=== PATIENT | female | born 1990 | race Caucasian/White ===

== ENCOUNTER 2016-04-20 01:25 | Emergency (ER) | payer SELFPAY ==
[2016-04-20] MEDS ORDERED: ONDANSETRON 4 MG ODT TABLET SL ONE (01:42)
--- NOTE | 2016-04-20 01:49 | Emergency Department Record ---
History of Present Illness - General Chief complaint: Vomiting Stated complaint: NAUSEA/VOMITING Time Seen by Provider: 04/20/16 01:39 Source: Patient Mode of Arrival: Ambulatory Limitations: No limitations - History of Present Illness Initial comments: 25 yo female presents to ED with a CC of nausea and vomiting x 1 that began 3-4 hours ago. Patient denies abdominal pain symptoms, fevers, chills, or urinary symptoms. Patient denies health problems at her baseline. MD complaint: Nausea, Vomiting Onset/Timin -: Hour(s) Description of Vomiting: Food contents Associated Abdominal Pain: No Consistency: Constant Improves with: None Worsens with: None Associated Symptoms: Nausea/vomiting - Related Data Home Medications Medication Instructions Recorded Confirmed Last Taken Pnv95/Ferrous Fumarate/FA 1 each PO DAILY 04/20/16 04/20/16 Unknown [ Caplet] Previous Rx's Medication Instructions Recorded Promethazine HCl [Phenergan] 25 mg PO Q8H PRN #15 tablet 04/20/16 Allergies Allergy/AdvReac Type Severity Reaction Status Date / Time No Known Drug Allergies Allergy Unknown Unverified 07/29/13 10:08 [NO KNOWN DRUG ALLERGIES] Travel Screening - Travel/Exposure Within Last 30 Days Have you traveled within the last 30 days?: No Review of Systems Constitutional: Denies: Chills, Fever, Malaise Eyes: Denies: Eye discharge, Eye pain ENT: Denies: Congestion, Ear pain Respiratory: Denies: Cough, Dyspnea Cardiovascular: Denies: Chest pain, Dyspnea on exertion Endocrine: Denies: Fatigue, Heat or cold intolerance Gastrointestinal: Reports: Nausea, Vomiting. Denies: Abdominal pain Genitourinary: Denies: Dysuria, Frequency Musculoskeletal: Denies: Arthralgia, Back pain Skin: Denies: Bruising, Change in color Neurological: Denies: Abnormal gait, Confusion, Headache, Seizure Psychiatric: Denies: Anxiety Hematological/Lymphatic: Denies: Anemia, Blood Clots Past Medical History - SOCIAL HISTORY Smoking Status: Current every day smoker Alcohol Use: None Drug Use: Occassional Drug Use Detail:: Marijuana - RESPIRATORY Hx Respiratory Disorders: No - CARDIOVASCULAR Hx Cardio Disorders: No - NEURO Hx Neuro Disorders: No - GI Hx GI Disorders: No - Hx Genitourinary Disorders: Yes Hx Kidney Stones: Yes (02/15) - ENDOCRINE Hx Endocrine Disorders: No Hx Diabetes: No Hx Thyroid Disease: No - MUSCULOSKELETAL Hx Musculoskeletal Disorders: No - PSYCH Hx Psych Problems: Yes Hx Anxiety: Yes Hx Depression: Yes - HEMATOLOGY/ONCOLOGY Hx Hematology/Oncology Disorders: No Family Medical History Any Significant Family History?: Yes Hx Cancer: Mother *Cancer Comment: M-Breast Physical Exam - General General Appearance: Alert, Oriented x3, Cooperative, No acute distress Limitations: No limitations - Head Head exam: Atraumatic, Normocephalic, Normal inspection Head exam detail: negative: Abrasion, Contusion, Melo's sign, General tenderness, Hematoma, Laceration - Eye Eye exam: Normal appearance. negative: Conjunctival injection, Periorbital swelling, Periorbital tenderness, Scleral icterus - ENT Ear exam: negative: Auricular hematoma, Auricular trauma Nasal Exam: negative: Active bleeding, Discharge, Dried blood, Foreign body Mouth exam: negative: Drooling, Laceration, Muffled voice, Tongue elevation - Neck Neck exam: Normal inspection. negative: Meningismus, Tenderness - Respiratory Respiratory exam: Normal lung sounds bilaterally. negative: Respiratory distress, Rhonchi, Stridor, Wheezes - Cardiovascular Cardiovascular Exam: Regular rate, Normal rhythm, Normal heart sounds - GI/Abdominal GI/Abdominal exam: Soft. negative: Rebound, Rigid, Tenderness - Rectal Rectal exam: Deferred - exam: Deferred - Extremities Extremities exam: Normal inspection. negative: Calf tenderness, Pedal edema, Tenderness - Back Back exam: Reports: Normal inspection. Denies: CVA tenderness (R), CVA tenderness (L) - Neurological Neurological exam: Alert, Normal gait, Oriented X3 - Psychiatric Psychiatric exam: Normal affect, Normal mood. negative: Anxious - Skin Skin exam: Normal color. negative: Abrasion Type of lesion: negative: abrasion Course Vital Signs 04/20/16 01:29 Temperature 98.2 F Pulse Rate [ 62 Pulse Ox Probe] Respiratory 20 Rate Blood Pressure 118/84 [Left Arm] Pulse Ox 98 - Reevaluation(s) Reevaluation #1: 04/20/16 01:49 Patient seen and examined, abdominal examination is benign, and patient denies cramping or pain on examination. Will perform HCG to exclude , laboratory studies, and treat the patient's nausea symptoms with a plan for re- evaluation in 1 hour. 04/20/16 03:27 Reevaluation #2: 04/20/16 03:12 Labs reviewed and are grossly unremarkable for an acute process. Patient reassessed and reports that she is feeling much better. Patient appears stable for discharge at this time. Medical Decision Making - Lab Data Result diagrams: 04/20/16 02:25 04/20/16 02:25 Disposition Disposition: Discharge Clinical Impression: Nausea & vomiting Qualifiers: Vomiting type: unspecified Vomiting Intractability: non-intractable Qualified Code(s): R11.2 - Nausea with vomiting, unspecified Disposition: Home, Self-Care Condition: (2) Stable Instructions: Acute Nausea and Vomiting (ED) Additional Instructions: Return to ED if your symptoms worsen or if you have any concerns Phenergan as directed for your nausea symptoms Follow-up with your family doctor in 3-5 days as directed Prescriptions: Promethazine HCl [Phenergan] 25 mg PO Q8H PRN #15 tablet PRN Reason: Nausea/Vomiting Forms: Patient Portal Access Time of Disposition: 03:16
[2016-04-20 01:55] LABS: URINE APPEARANCE CLEAR; URINE BILIRUBIN NEGATIVE (NEGATIVE); URINE BLOOD LARGE (NEGATIVE); URINE COLOR YELLOW; URINE GLUCOSE (UA) NEGATIVE (NEGATIVE); URINE KETONE NEGATIVE (NEGATIVE); URINE LEUKOCYTE ESTERASE NEGATIVE (NEGATIVE); URINE NITRITE NEGATIVE (NEGATIVE); URINE PROTEIN TRACE (NEGATIVE); URINE UROBILINOGEN 0.2 E.U./dL (0.20 - 1.00)
[2016-04-20 01:59] LABS: URINE WBC 0 - 2 (0-2/hpf)
[2016-04-20 02:00] LABS: HCG,QUALITATIVE URINE NEGATIVE (NEGATIVE); URINE BACTERIA NONE SEEN
[2016-04-20] MEDS ORDERED: LORAZEPAM 2 MG/ML VIAL IV ONE (02:19)
[2016-04-20] MEDS ORDERED: PROMETHAZINE HCL 25 MG in 0.9 % SODIUM CHLORIDE 100ML 50 ML IVP ONE (02:19)
[2016-04-20] MEDS ORDERED: 0.9 % SODIUM CHLORIDE 1000ML 1,000 ML IV SCH (02:30)
[2016-04-20 02:33] LABS: BASO % 0.3 % (0-6); EOS % 7.9 % (0-6); GRAN % 71.9 % (47-80); HEMATOCRIT 37.5 % (35.0-47.0); HEMOGLOBIN 12.7 gm/dl (11.6-16.0); LYMPH % 14.5 % (16-45); MEAN CELL VOLUME 85.4 fl (81-97); MEAN CORPUSCULAR HEMOGLOBIN 28.9 pg (27-33); MEAN CORPUSCULAR HGB CONC 33.9 g/dl (32-36); MEAN PLATELET VOLUME 10.2 fl (7.4-10.4); MONO % 5.4 % (0-9); PLATELET COUNT 277 K/uL (130-400); RED BLOOD COUNT 4.39 M/uL (3.80-5.40); RED CELL DISTRIBUTION WIDTH 13.6 % (11.5-14.5); WHITE BLOOD COUNT W/O DIFF 9.6 K/uL (4.2-12.2)
[2016-04-20 02:43] LABS: ALB/GLOB RATIO 1.5 (1.1-1.8); ALBUMIN 4.3 gm/dL (3.5-5.0); ALKALINE PHOSPHATASE 67 U/L (38-126); ALT/SGPT 23 U/L (9-52); ANION GAP 13.8 (7-16); AST/SGOT 14 U/L (14-36); BILIRUBIN,TOTAL 0.28 mg/dL (0.2-1.3); BLOOD UREA NITROGEN 12 mg/dL (7-17); CARBON DIOXIDE 25.2 mmol/L (22-30); CREATININE 0.7 mg/dL (0.52-1.04); EST GLOMERULAR FILTRATION RATE > 60 ml/min; GLUCOSE,RANDOM 92 mg/dL (70-110); LIPASE 59 U/L (23-300); TOTAL PROTEIN 7.1 gm/dL (6.3-8.2)
== END 2016-04-20 03:31 | disposition home or self-care (01) ==
LOC: ER 01:25
DX: R11.2 Nausea with vomiting, unspecified (principal)
CPT/HCPCS: 99284 ×2; 96374; 96375; 83690; 85025; 80053; 81001; 81025; J2060; J2550; J7030

== ENCOUNTER 2017-05-10 23:03 | Emergency (ER) | payer SELFPAY ==
[2017-05-10] MEDS: IPRATROPIUM/ALBUTEROL (0.5MG/3MG) NEB INH ONE (23:42)
[2017-05-10] MEDS: METHYLPREDNISOLONE PF 125MG/VIAL IM ONE (23:42)
--- NOTE | 2017-05-11 00:14 | Emergency Department Record ---
History of Present Illness - General Chief Complaint: Cough Stated Complaint: COUGH Time Seen by Provider: 05/10/17 23:24 Source: Patient Mode of Arrival: Ambulatory Limitations: No limitations - History of Present Illness Initial Comments: pt feels sob.she has been wheezing. she just stopped smoking today MD Complaint: Shortness of breath Onset/Timin Severity: Mild Severity scale (1-10): 4 Consistency: Constant Improves With: Upright position Context: Recent URI Associated Symptoms: Cough, Fever - Related Data Previous Rx's Medication Instructions Recorded Promethazine HCl [Phenergan] 25 mg PO Q8H PRN #15 tablet 04/20/16 Allergies Allergy/AdvReac Type Severity Reaction Status Date / Time No Known Drug Allergies Allergy Unknown Unverified 07/29/13 10:08 [NO KNOWN DRUG ALLERGIES] Travel Screening - Travel/Exposure Within Last 30 Days Have you traveled within the last 30 days?: No - Travel/Exposure Within Last Year Have you traveled outside the [place] in the last year?: No - Additonal Travel Details Have you been exposed to anyone with a communicable illness?: No - Travel Symptoms Symptom Screening: None Review of Systems Reviewed: No additional complaints except as noted below Constitutional: Reports: As per HPI. Denies: Chills, Fever, Malaise, Night sweats, Weakness, Weight change Eyes: Reports: As per HPI. Denies: Eye discharge, Eye pain, Photophobia, Vision change ENT: Reports: As per HPI. Denies: Congestion, Dental pain, Ear pain, Epistaxis , Hearing loss, Throat pain Respiratory: Reports: As per HPI. Denies: Cough, Dyspnea, Hemoptysis, Stridor, Wheezes Cardiovascular: Reports: As per HPI. Denies: Arrhythmia, Chest pain, Dyspnea on exertion, Edema, Murmurs, Orthopnea, Palpitations, Paroxysmal nocturnal dyspnea, Rheumatic Fever, Syncope Endocrine: Reports: As per HPI. Denies: Fatigue, Heat or cold intolerance, Polydipsia, Polyuria Gastrointestinal: Reports: As per HPI. Denies: Abdominal pain, Constipation, Diarrhea, Hematemesis, Hematochezia, Melena, Nausea, Vomiting Genitourinary: Reports: As per HPI. Denies: Abnormal menses, Discharge, Dyspareunia, Dysuria, Frequency, Hematuria, Incontinence, Retention, Urgency Musculoskeletal: Reports: As per HPI. Denies: Arthralgia, Back pain, Gout, Joint swelling, Myalgia, Neck pain Skin: Reports: As per HPI. Denies: Bruising, Change in color, Change in hair/ nails, Lesions, Pruritus, Rash Neurological: Reports: As per HPI. Denies: Abnormal gait, Confusion, Headache, Numbness, Paresthesias, Seizure, Tingling, Tremors, Vertigo, Weakness Psychiatric: Reports: As per HPI. Denies: Anxiety, Auditory hallucinations, Depression, Homicidal thoughts, Suicidal thoughts, Visual hallucinations Hematological/Lymphatic: Reports: As per HPI. Denies: Anemia, Blood Clots, Easy bleeding, Easy bruising, Swollen glands Past Medical History - SOCIAL HISTORY Smoking Status: Current every day smoker Alcohol Use: None Drug Use: None - RESPIRATORY Hx Respiratory Disorders: No - CARDIOVASCULAR Hx Cardio Disorders: No - NEURO Hx Neuro Disorders: No - GI Hx GI Disorders: No - Hx Genitourinary Disorders: Yes Hx Kidney Stones: Yes (02/15) - ENDOCRINE Hx Endocrine Disorders: No Hx Diabetes: No Hx Thyroid Disease: No - MUSCULOSKELETAL Hx Musculoskeletal Disorders: No - PSYCH Hx Psych Problems: Yes Hx Anxiety: Yes Hx Depression: Yes - HEMATOLOGY/ONCOLOGY Hx Hematology/Oncology Disorders: No Family Medical History Any Significant Family History?: No Hx Cancer: Mother *Cancer Comment: M-Breast Physical Exam - General General Appearance: Alert, Oriented x3, Cooperative, Mild distress - Head Head exam: Normal inspection - Eye Eye exam: Normal appearance, PERRL, EOMI Pupils: Normal accommodation - ENT ENT exam: Normal exam, Mucous membranes moist, Normal external ear exam, Normal orophraynx Ear exam: Normal external inspection. negative: External canal tenderness Nasal Exam: Normal inspection. negative: Discharge, Sinus tenderness Mouth exam: Normal external inspection, Tongue normal Teeth exam: Normal inspection. negative: Dental caries Throat exam: Normal inspection. negative: Tonsillar erythema, Tonsillar exudate - Neck Neck exam: Normal inspection, Full ROM. negative: Tenderness - Respiratory Respiratory exam: Wheezes. negative: Respiratory distress - Cardiovascular Cardiovascular Exam: Regular rate, Normal rhythm, Normal heart sounds - GI/Abdominal GI/Abdominal exam: Soft, Normal bowel sounds. negative: Tenderness - Rectal Rectal exam: Deferred - exam: Deferred - Extremities Extremities exam: Normal inspection, Full ROM, Normal capillary refill. negative: Tenderness - Back Back exam: Reports: Normal inspection, Full ROM. Denies: Muscle spasm, Rash noted, Tenderness - Neurological Neurological exam: Alert, Normal gait, Oriented X3, Reflexes normal - Psychiatric Psychiatric exam: Normal affect, Normal mood - Skin Skin exam: Dry, Intact, Normal color, Warm Course Vital Signs 05/10/17 23:07 Temperature 98.7 F Pulse Rate [ 80 Pulse Ox Probe] Respiratory 24 Rate Blood Pressure 137/98 [Left Arm] Pulse Ox 97 - Reevaluation(s) Reevaluation #1: 05/11/17 00:12 pt feels better Medical Decision Making - Lab Data Lab Results 05/10/17 Range/Units 23:34 Urine HCG, Qual Negative (NEGATIVE) Disposition Disposition: Discharge Clinical Impression: Wheezing Disposition: Home, Self-Care Condition: (1) Good Instructions: Reactive Airways Disease (ED) Additional Instructions: follow up with family doctor. return sooner if worse. no smoking. ventolin 2 puffs every 6 hrs as needed Quality - Quality Measures Quality Measures: N/A - Blood Pressure Screening Does Patient Have Any of the Following: No Blood Pressure Classification: Hypertensive Reading Systolic Measurement: 137 Diastolic Measurement: 98 Screening for High Blood Pressure: < Pre-Hypertensive BP, F/U Documented > [ G8950] Pre-Hypertensive Follow-up Interventions: Follow-up with rescreen every year.
[2017-05-11] MEDS: ALBUTEROL HFA 8 GM INHALER INH ONE (00:19)
== END 2017-05-11 00:27 | disposition home or self-care (01) ==
LOC: ER 23:03
DX: R06.2 Wheezing (principal); R05 Cough; R06.02 Shortness of breath; F17.210 Nicotine dependence, cigarettes, uncomplicated
CPT/HCPCS: 81025; 96372; 99283; J2930

== ENCOUNTER 2017-05-12 22:38 | Emergency (ER) | payer SELFPAY ==
[2017-05-12] MEDS ORDERED: 0.9 % SODIUM CHLORIDE 1,000 ML BAG IV ONE (22:45)
[2017-05-12] MEDS ORDERED: PROMETHAZINE HCL 12.5 MG in 0.9 % SODIUM CHLORIDE 100ML 100 ML IVPB ONE (22:45)
[2017-05-12] MEDS ORDERED: PANTOPRAZOLE SODIUM IV 40 MG VIAL IVP ONE (22:45)
[2017-05-12] MEDS ORDERED: MORPHINE SULFATE 5 MG/ML PFS IVP ONE (22:48)
--- NOTE | 2017-05-12 22:49 | Emergency Department Record ---
History of Present Illness - General Chief Complaint: Abdominal Pain Stated Complaint: ABDOMINAL PAIN Time Seen by Provider: 05/12/17 22:40 Source: Patient, Family Mode of Arrival: Ambulatory Limitations: No limitations - History of Present Illness Initial Comments: 26 yo female presents with about two hours of upper abdominal pain. She states the pain is in the epigastric area and radiates to the LUQ. No lower abdominal pain. She has had similar pain over the last 5 years occasionally. She had similar pain in 2012 that lead to the removal of her gallbladder. The pain has continued to periodically return. She does not have a doctor or GI doctor. No diarrhea. NO blood in the vomit. She states she did have an upper scope about 2 years ago that was negative. She denies NSAID use. She is not on a PPI. Her last BM was this morning and was normal. MD Complaint: Abdominal pain -: Hour(s) (2) Location: Epigastric Radiation: Epigastric, LUQ Migration to: Epigastric, LUQ Severity: Severe Quality: Aching, Cramping Consistency: Constant Improves With: Nothing Worsens With: Nothing Context: Other (Recurrent pain since 2013 gall bladder removal) - Related Data Home Medications Medication Instructions Recorded Confirmed Last Taken Albuterol Sulfate [Ventolin Hfa] 1 - 2 puff IH .EVERY 4-6 HOURS PRN 05/12/1712/19 Unknown Previous Rx's Medication Instructions Recorded Ondansetron [Zofran Odt] 4 mg PO Q8H #15 tab.rapdis 05/13/17 Promethazine HCl [Phenergan] 50 mg RC BID #10 supp.rect 05/13/17 Ranitidine HCl [Zantac] 150 mg PO BID #30 tablet 05/13/17 Allergies Allergy/AdvReac Type Severity Reaction Status Date / Time morphine AdvReac VOMITING Verified 05/13/17 09:48 Review of Systems Constitutional: Denies: Chills, Fever, Malaise, Weakness Eyes: Denies: Eye discharge, Eye pain, Photophobia, Vision change ENT: Denies: Congestion, Throat pain Respiratory: Reports: Cough. Denies: Dyspnea, Hemoptysis, Stridor, Wheezes Cardiovascular: Denies: Chest pain, Palpitations, Syncope Endocrine: Denies: Fatigue, Polydipsia, Polyuria Gastrointestinal: Reports: As per HPI, Abdominal pain, Nausea, Vomiting. Denies : Diarrhea Genitourinary: Denies: Abnormal menses, Dysuria, Frequency, Hematuria, Urgency Musculoskeletal: Denies: Arthralgia, Back pain, Neck pain Skin: Denies: Bruising, Change in color, Rash Neurological: Denies: Headache, Numbness, Weakness Psychiatric: Reports: Anxiety Hematological/Lymphatic: Denies: Easy bruising, Swollen glands Past Medical History - SOCIAL HISTORY Smoking Status: Current every day smoker Drug Use: None - RESPIRATORY Hx Respiratory Disorders: No - CARDIOVASCULAR Hx Cardio Disorders: No - NEURO Hx Neuro Disorders: No - GI Hx GI Disorders: No - Hx Genitourinary Disorders: Yes Hx Kidney Stones: Yes (02/15) - ENDOCRINE Hx Endocrine Disorders: No Hx Diabetes: No Hx Thyroid Disease: No - MUSCULOSKELETAL Hx Musculoskeletal Disorders: No - PSYCH Hx Psych Problems: Yes Hx Anxiety: Yes Hx Depression: Yes - HEMATOLOGY/ONCOLOGY Hx Hematology/Oncology Disorders: No Family Medical History Hx Cancer: Mother *Cancer Comment: M-Breast Physical Exam - General General Appearance: Alert, Oriented x3, Cooperative, No acute distress Limitations: No limitations - Head Head exam: Normal inspection - Eye Eye exam: Normal appearance, PERRL. negative: Conjunctival injection, Scleral icterus - ENT ENT exam: Normal exam, Mucous membranes moist Ear exam: Normal external inspection Nasal Exam: Normal inspection Mouth exam: Normal external inspection Teeth exam: Normal inspection Throat exam: Normal inspection - Neck Neck exam: Normal inspection, Full ROM. negative: Tenderness - Respiratory Respiratory exam: Normal lung sounds bilaterally. negative: Respiratory distress - Cardiovascular Cardiovascular Exam: Regular rate, Normal rhythm, Normal heart sounds - GI/Abdominal GI/Abdominal exam: Soft, Tenderness (the abdomen is very soft. it is tender in the epgastrium and LUQ the lower abdomen is very soft and non tender). negative : Distended - Rectal Rectal exam: Deferred - exam: Deferred - Extremities Extremities exam: Normal inspection, Full ROM, Normal capillary refill. negative: Tenderness - Back Back exam: Reports: Normal inspection, Full ROM. Denies: Muscle spasm, Rash noted, Tenderness - Neurological Neurological exam: Alert, Normal gait, Oriented X3, Reflexes normal - Skin Skin exam: Dry, Intact, Normal color, Warm Course Vital Signs 05/12/17 22:42 Temperature 98.2 F Pulse Rate [ 92 H Pulse Ox Probe] Respiratory 24 Rate Blood Pressure 146/91 [Left Arm] Pulse Ox 96 - Reevaluation(s) Reevaluation #1: The vitals were reviewed No acute changes. 05/12/17 22:51 05/12/17 23:28 The labs were reviewed No acute changes on the CBC The UCG is negative The UA is negative The HCO3 is 21 The remaining CMP with LFT's is all negative 05/12/17 23:30 The pain and nausea persist. She reports several years ago to had a normal Upper scope 05/13/17 00:51 The patient had asked for specific narcotics by name and stated a gi cocktail "never helps" no a UDS was added to the work up prior to giving any narcotic pain medications. She is positive for meth and cannabis. She admits to daily cannibis but denies any meth. She has been taking cold medications that can cause a false positive. 05/13/17 01:39 The patient has returned from CT, her nausea has returned. 05/13/17 01:[address] scan was reviewed. Pulmonary nodules noted. The patient was made aware that these will need follow up with a new family doctor. Mild colonic wall thickening suggestive of inflammatory or infectious colitis. Small free fluid. Ring enhancing corpus luteum cyst. 05/13/17 02:07 The results were discussed with the patient. She was offered admission for OBV for supportive care with fluids and antiemetics. She declined OBV and wishes to go home at this time. She was informed to return anytime for a recheck if not improving. We discussed home care, diet, followup and reasons to return to the ED in the next 12-24 hours. 05/13/17 02:13 Medical Decision Making - Lab Data Result diagrams: 05/12/17 22:48 05/12/17 22:48 Disposition Disposition: Discharge Clinical Impression: Colitis Abdominal pain Qualifiers: Abdominal location: epigastric Qualified Code(s): R10.13 - Epigastric pain Disposition: Home, Self-Care Condition: (1) Good Instructions: Epigastric Pain (ED), Colitis (ED) Additional Instructions: Call the [facility] for a new family doctor You have small pulmonary nodules on your CT that will need to be rechecked by your family doctor Return of be seen if fever, vomiting or any new concerns Zofran and Zantac as directed Prescriptions: Ondansetron [Zofran Odt] 4 mg PO Q8H #15 tab.rapdis Ranitidine HCl [Zantac] 150 mg PO BID #30 tablet Referrals: RAUL HASTINGS [MEDICAL DOCTOR] - Forms: Patient Portal Access Time of Disposition: 02:10 Quality - Quality Measures Quality Measures: N/A - Blood Pressure Screening Does Patient Have Any of the Following: No Blood Pressure Classification: Pre-Hypertensive BP Reading Systolic Measurement: 108 Diastolic Measurement: 82 Screening for High Blood Pressure: < Pre-Hypertensive BP, F/U Documented > [ G8950] Pre-Hypertensive Follow-up Interventions: Referral to alternative/primary care provider.
[2017-05-12] MEDS ORDERED: MAGNESIUM HYDROXIDE/AL HYDROX 30 ML, LIDOCAINE VISC 2% 200 MG PO ONE ×2 (22:50)
[2017-05-12 23:02] LABS: BASO % 0.4 % (0-6); EOS % 5.8 % (0-6); GRAN % 71.4 % (47-80); HEMATOCRIT 41.6 % (35.0-47.0); HEMOGLOBIN 14.3 gm/dl (11.6-16.0); MEAN CELL VOLUME 82.2 fl (81-97); MEAN CORPUSCULAR HEMOGLOBIN 28.3 pg (27-33); MEAN CORPUSCULAR HGB CONC 34.4 g/dl (32-36); MEAN PLATELET VOLUME 10.2 fl (7.4-10.4); MONO % 11.4 % (0-9); PLATELET COUNT 311 K/uL (130-400); RED BLOOD COUNT 5.06 M/uL (3.80-5.40); RED CELL DISTRIBUTION WIDTH 14.2 % (11.5-14.5); URINE APPEARANCE CLEAR; URINE BILIRUBIN NEGATIVE (NEGATIVE); URINE BLOOD NEGATIVE (NEGATIVE); URINE COLOR YELLOW; URINE GLUCOSE (UA) NEGATIVE (NEGATIVE); URINE KETONE NEGATIVE (NEGATIVE); URINE LEUKOCYTE ESTERASE NEGATIVE (NEGATIVE); URINE NITRITE NEGATIVE (NEGATIVE); URINE PROTEIN NEGATIVE (NEGATIVE); URINE UROBILINOGEN 0.2 E.U./dL (0.20 - 1.00); WHITE BLOOD COUNT W/O DIFF 9.2 K/uL (4.2-12.2)
[2017-05-12 23:17] LABS: BLOOD UREA NITROGEN 11 mg/dL (6-20); CREATININE 0.7 mg/dL (0.5-0.9); EST GLOMERULAR FILTRATION RATE > 60 mL/min
[2017-05-12 23:18] LABS: TOTAL PROTEIN 7.9 g/dL (6.6-8.7)
[2017-05-12 23:20] LABS: GLUCOSE,RANDOM 89 mg/dL (74-109)
[2017-05-12 23:22] LABS: ALB/GLOB RATIO 1.4 (1.1-1.8); ALBUMIN 4.6 g/dL (4.0-5.0); ALT/SGPT 16 U/L (<33); AST/SGOT 21 U/L (10.0-35.0)
[2017-05-12 23:23] LABS: ALKALINE PHOSPHATASE 66 U/L (35-104); LIPASE 11 U/L (13-60)
[2017-05-12] MEDS ORDERED: ONDANSETRON HCL IV 4 MG/2 ML VIAL IVP ONE (23:31)
[2017-05-12] MEDS ORDERED: ACETAMINOPHEN 1,000 MG/100 ML BTL IVPB ONE (23:32)
[2017-05-12] MEDS ORDERED: PROMETHAZINE HCL 25 MG/ML VIAL IVP ONE (23:58)
[2017-05-12] MEDS ORDERED: DIPHENHYDRAMINE HCL IV 50 MG/ML VIAL IVP ONE (23:58)
[2017-05-13 00:10] LABS: AMPHETAMINE SCREEN URINE NOT DETECTED; BARBITURATE SCREEN URINE NOT DETECTED; BENZODIAZEPINE SCREEN URINE NOT DETECTED; COCAINE SCREEN URINE NOT DETECTED; METHADONE SCREEN URINE NOT DETECTED; METHAMPHETAMINE SCREEN DETECTED; OPIATE SCREEN URINE NOT DETECTED; OXYCODONE SCREEN URINE NOT DETECTED; PHENCYCLIDINE SCREEN URINE NOT DETECTED; PROPOXYPHENE SCREEN URINE NOT DETECTED; THC SCREEN URINE DETECTED; TRICYCLIC ANTIDEPRESSANT SCRN NOT DETECTED
[2017-05-13] MEDS ORDERED: ONDANSETRON HCL IV 4 MG/2 ML VIAL IVP ONE (01:37)
[2017-05-13] MEDS ORDERED: 0.9 % SODIUM CHLORIDE 1,000 ML BAG IV ONE (01:37)
[2017-05-13] MEDS ORDERED: 0.9 % SODIUM CHLORIDE 1000ML 1,000 ML IV ONE (01:49)
[2017-05-13] MEDS ORDERED: HYDROMORPHONE HCL 1 MG/ML SYRINGE IVP ONE (01:58)
[2017-05-13] MEDS ORDERED: ONDANSETRON 4 MG ODT TABLET SL ONE ×2 (02:06→02:07)
--- NOTE | 2017-05-13 16:00 | CT SCAN REPORT ---
DATE: 05/12/2017. EXAM: CT OF THE ABDOMEN AND PELVIS WITH CONTRAST. HISTORY: Left upper quadrant pain. TECHNIQUE: Sequential axial images were obtained from the diaphragms through the ischiorectal fossa after intravenous and oral administration of 100 mL of Omnipaque 300 contrast material. FINDINGS: There is a 4.0 mm faintly defined nodule in the lingular segment. There is a subcentimeter low-density lesion on the left lobe of the liver. The gallbladder has been surgically removed. The pancreas and spleen appear normal. The adrenal glands and kidneys appear normal. The small bowel appears normal. The appendix is not definitively identified. There are, however, no secondary findings suggestive of acute appendicitis. The colon is incompletely distended limiting evaluation. There is follicular change/cystic change in both ovaries. There is a small amount of free fluid in the cul de sac. The urinary bladder appears normal. IMPRESSION: 1. FOLLICULAR/CYSTIC CHANGE TO BOTH OVARIES. A SMALL AMOUNT OF FREE FLUID IN THE CUL DE SAC. 2. NONVISUALIZATION OF THE APPENDIX. THERE ARE, HOWEVER, NO SECONDARY FINDINGS SUGGESTIVE OF ACUTE APPENDICITIS. JOB NUMBER: [id number] MTDD
== END 2017-05-13 03:18 | disposition home or self-care (01) ==
LOC: ER 22:38
DX: K52.9 Noninfective gastroenteritis and colitis, unspecified (principal); R10.13 Epigastric pain; F17.210 Nicotine dependence, cigarettes, uncomplicated
CPT/HCPCS: 99284 ×2; 96365; 96375; 83690; 85025; 80053; 81003; 84703; 80305; 74177; Q9967; J2405 ×2; J1170; C9113; J1200; J2550; J7030

== ENCOUNTER 2017-05-13 09:42 | Emergency (ER) | payer SELFPAY ==
[2017-05-13] MEDS ORDERED: 0.9 % SODIUM CHLORIDE 1,000 ML BAG IV ONE (10:08)
[2017-05-13] MEDS ORDERED: ONDANSETRON HCL IV 4 MG/2 ML VIAL IV ONE (10:08)
[2017-05-13] MEDS ORDERED: HYDROMORPHONE HCL 1 MG/ML SYRINGE IVP ONE (10:09)
--- NOTE | 2017-05-13 10:12 | Emergency Department Record ---
History of Present Illness - General Chief Complaint: Abdominal Pain Stated Complaint: ABDOMINAL PAIN,NAUSEA Time Seen by Provider: 05/13/17 09:44 Mode of Arrival: Ambulatory - History of Present Illness Initial Comments: The patient is here with a one day hx of upper abdominal pain with nausea and vomiting. She was here in the ER 12 hours ago and had a CT that basically was normal. Now since discharge the pain and vomiting have returned. The patient did have similar issues in the past but had her GB removed and it improved. MD Complaint: Abdominal pain Onset/Timin -: Days(s) Location: Epigastric Radiation: Back Migration to: No migration Severity: Severe Quality: Aching, Sharp, Stabbing Consistency: Constant Improves With: Nothing Worsens With: Nothing Associated Symptoms: Nausea, Vomiting - Related Data LMP Date: 04/12/17 Previous Rx's Medication Instructions Recorded Ondansetron [Zofran Odt] 4 mg PO Q8H #15 tab.rapdis 05/13/17 Promethazine HCl [Phenergan] 50 mg RC BID #10 supp.rect 05/13/17 Ranitidine HCl [Zantac] 150 mg PO BID #30 tablet 05/13/17 Allergies Allergy/AdvReac Type Severity Reaction Status Date / Time morphine AdvReac VOMITING Verified 05/13/17 09:48 Travel Screening - Travel/Exposure Within Last 30 Days Have you traveled within the last 30 days?: No - Travel/Exposure Within Last Year Have you traveled outside the [place] in the last year?: No - Additonal Travel Details Have you been exposed to anyone with a communicable illness?: No - Travel Symptoms Symptom Screening: None Review of Systems Constitutional: Denies: Chills, Fever, Malaise Past Medical History - SOCIAL HISTORY Smoking Status: Current every day smoker Alcohol Use: None Drug Use: None Drug Use Detail:: Marijuana - RESPIRATORY Hx Respiratory Disorders: No - CARDIOVASCULAR Hx Cardio Disorders: No - NEURO Hx Neuro Disorders: No - GI Hx GI Disorders: No Hx Abdominal Pain: Yes - Hx Genitourinary Disorders: Yes Hx Kidney Stones: Yes (02/15) - ENDOCRINE Hx Endocrine Disorders: No Hx Diabetes: No Hx Thyroid Disease: No - MUSCULOSKELETAL Hx Musculoskeletal Disorders: No - PSYCH Hx Psych Problems: Yes Hx Anxiety: Yes Hx Depression: Yes - HEMATOLOGY/ONCOLOGY Hx Hematology/Oncology Disorders: No Family Medical History Any Significant Family History?: Yes Hx Cancer: Mother *Cancer Comment: M-Breast Physical Exam - General General Appearance: Alert, Oriented x3, Cooperative, Mild distress - Head Head exam: Atraumatic, Normocephalic, Normal inspection - ENT Throat exam: Normal inspection. negative: Tonsillar erythema, Tonsillar exudate - Neck Neck exam: Normal inspection, Full ROM. negative: Lymphadenopathy, Tenderness - Respiratory Respiratory exam: Normal lung sounds bilaterally. negative: Respiratory distress - Cardiovascular Cardiovascular Exam: Regular rate, Normal rhythm, Normal heart sounds - GI/Abdominal GI/Abdominal exam: Soft, Normal bowel sounds, Tenderness (There is mild upper abdominal tenderness.). negative: Distended, Rebound, Rigid - Extremities Extremities exam: Normal inspection, Full ROM, Normal capillary refill. negative: Tenderness - Back Back exam: Reports: Normal inspection, Full ROM. Denies: Muscle spasm, Rash noted, Tenderness - Neurological Neurological exam: Alert. negative: Motor sensory deficit Course Vital Signs 05/13/17 09:47 Temperature 98.2 F Pulse Rate 76 Respiratory 32 H Rate Blood Pressure 119/81 Pulse Ox 100 - Reevaluation(s) Reevaluation #1: The patient is doing a lot better at this time. She is resting comfortably with no pain or vomiting. 05/13/17 12:08 Reevaluation #2: The patient is much better at this time. She denies any AP, nausea, vomiting, or back pain. On exam her abdomen is very soft and nontender in all 4 quads. 05/13/17 13:01 Reevaluation #3: The patient is doing much better at this time. She denies any pain or nausea and is up walking with no discomfort or dizziness. She would like some phenergan for home and will fill her scripts from the previous visit. 05/13/17 13:51 Medical Decision Making - Lab Data Result diagrams: 05/13/17 10:25 05/13/17 10:25 Disposition Disposition: Discharge Clinical Impression: Abdominal pain Qualifiers: Abdominal location: epigastric Qualified Code(s): R10.13 - Epigastric pain Disposition: Home, Self-Care Condition: (2) Stable Instructions: Abdominal Pain (ED) Additional Instructions: Please do not eat or drink for 4 hours then slowly increase your diet. Eat a very bland diet and use the Zofran or Phenergan if needed. Please see your PCP if not better in 2 days and return to the ER for any worsening symptoms. Prescriptions: Promethazine HCl [Phenergan] 50 mg RC BID #10 supp.rect Forms: Patient Portal Access Time of Disposition: 13:54 Quality - Quality Measures Quality Measures: N/A - Blood Pressure Screening View Details: Yes Does Patient Have Any of the Following: No Blood Pressure Classification: Normal BP Reading Systolic Measurement: 116 Diastolic Measurement: 77 Screening for High Blood Pressure: < Normal BP, F/U Not Required > [G8783]
[2017-05-13 10:39] LABS: BASO % 0.3 % (0-6); EOS % 0.3 % (0-6); GRAN % 78.7 % (47-80); HEMATOCRIT 36.9 % (35.0-47.0); HEMOGLOBIN 12.5 gm/dl (11.6-16.0); MEAN CELL VOLUME 83.1 fl (81-97); MEAN CORPUSCULAR HEMOGLOBIN 28.2 pg (27-33); MEAN CORPUSCULAR HGB CONC 33.9 g/dl (32-36); MEAN PLATELET VOLUME 10.3 fl (7.4-10.4); MONO % 11.7 % (0-9); PLATELET COUNT 270 K/uL (130-400); RED BLOOD COUNT 4.44 M/uL (3.80-5.40); RED CELL DISTRIBUTION WIDTH 14.2 % (11.5-14.5)
[2017-05-13] MEDS ORDERED: PROMETHAZINE HCL 12.5 MG in 0.9 % SODIUM CHLORIDE 100ML 100 ML IVPB ONE (10:55)
[2017-05-13 11:24] LABS: BLOOD UREA NITROGEN 10 mg/dL (6-20); CREATININE 0.6 mg/dL (0.5-0.9); EST GLOMERULAR FILTRATION RATE > 60 mL/min
[2017-05-13 11:25] LABS: TOTAL PROTEIN 7.3 g/dL (6.6-8.7)
[2017-05-13 11:27] LABS: GLUCOSE,RANDOM 92 mg/dL (74-109)
[2017-05-13 11:30] LABS: ALBUMIN 4.2 g/dL (4.0-5.0); ALKALINE PHOSPHATASE 58 U/L (35-104); ALT/SGPT 18 U/L (<33); AST/SGOT 20 U/L (10.0-35.0); LIPASE 11 U/L (13-60)
[2017-05-13 11:31] LABS: BILIRUBIN,DIRECT < 0.2 mg/dL (0-0.3)
== END 2017-05-13 14:33 | disposition home or self-care (01) ==
LOC: ER 09:42
DX: R10.13 Epigastric pain (principal); R11.2 Nausea with vomiting, unspecified; F17.210 Nicotine dependence, cigarettes, uncomplicated
CPT/HCPCS: 99284; 96365; 96375; 99285; 83690; 85025; 80076; 80048; J2405; J1170; J2550; J7030

== ENCOUNTER 2017-10-15 05:52 | Emergency (ER) | payer SELFPAY ==
[2017-10-15] MEDS ORDERED: 0.9 % SODIUM CHLORIDE 1,000 ML BAG IV ONE (06:16)
[2017-10-15] MEDS ORDERED: PROMETHAZINE HCL 12.5 MG in 0.9 % SODIUM CHLORIDE 100ML 100 ML IVPB ONE (06:17)
[2017-10-15] MEDS ORDERED: PROMETHAZINE HCL 25 MG in 0.9 % SODIUM CHLORIDE 100ML 100 ML IVPB ONE (06:19)
[2017-10-15 06:28] LABS: HEMATOCRIT 41.3 % (35.0-47.0); HEMOGLOBIN 13.7 gm/dl (11.6-16.0); MEAN CELL VOLUME 82.1 fl (81-97); MEAN CORPUSCULAR HEMOGLOBIN 27.2 pg (27-33); MEAN CORPUSCULAR HGB CONC 33.2 g/dl (32-36); MEAN PLATELET VOLUME 10.4 fl (7.4-10.4); PLATELET COUNT 343 K/uL (130-400); RED BLOOD COUNT 5.03 M/uL (3.80-5.40); RED CELL DISTRIBUTION WIDTH 14.5 % (11.5-14.5); WHITE BLOOD COUNT W/O DIFF 10.1 K/uL (4.2-12.2)
--- NOTE | 2017-10-15 06:31 | Emergency Department Record ---
History of Present Illness - General Source: Patient, Family Mode of Arrival: Ambulatory Limitations: No limitations - History of Present Illness Initial comments: pt has had intractable nausea and vomiting since 2am. she has had this problem in the past. she admits to drinking alcohol and smoking of marijuana last night. she is aware of cyclical vomiting connected marijuana. she has had gb out in the past for similar symptoms. she denies diarrhea MD complaint: Abdominal pain, Nausea, Vomiting Onset/Timin -: Hour(s) Description of Vomiting: Bilious Associated Abdominal Pain: No Location: Epigastric Radiation: None Severity: Mild Consistency: Constant Improves with: None Worsens with: None Context: Other Associated Symptoms: Nausea/vomiting <Radha Rendon - Last Filed: 10/15/17 06:48> <Jorge Fajardo - Last Filed: 10/15/17 12:13> - General Chief complaint: Vomiting Stated complaint: VOMITING Time Seen by Provider: 10/15/17 06:08 - Related Data Previous Rx's Medication Instructions Recorded Ondansetron [Zofran Odt] 4 mg PO Q8H #15 tab.rapdis 05/13/17 Allergies Allergy/AdvReac Type Severity Reaction Status Date / Time morphine AdvReac VOMITING Verified 05/13/17 09:48 Travel Screening - Travel/Exposure Within Last 30 Days Have you traveled within the last 30 days?: No - Travel Symptoms Symptom Screening: Vomiting <Radha Rendon - Last Filed: 10/15/17 06:48> Review of Systems Reviewed: No additional complaints except as noted below Constitutional: Reports: As per HPI. Denies: Chills, Fever, Malaise, Night sweats, Weakness, Weight change Eyes: Reports: As per HPI. Denies: Eye discharge, Eye pain, Photophobia, Vision change ENT: Reports: As per HPI. Denies: Congestion, Dental pain, Ear pain, Epistaxis , Hearing loss, Throat pain Respiratory: Reports: As per HPI. Denies: Cough, Dyspnea, Hemoptysis, Stridor, Wheezes Cardiovascular: Reports: As per HPI. Denies: Arrhythmia, Chest pain, Dyspnea on exertion, Edema, Murmurs, Orthopnea, Palpitations, Paroxysmal nocturnal dyspnea, Rheumatic Fever, Syncope Endocrine: Reports: As per HPI. Denies: Fatigue, Heat or cold intolerance, Polydipsia, Polyuria Gastrointestinal: Reports: As per HPI, Abdominal pain, Nausea, Vomiting. Denies : Constipation, Diarrhea, Hematemesis, Hematochezia, Melena Genitourinary: Reports: As per HPI. Denies: Abnormal menses, Discharge, Dyspareunia, Dysuria, Frequency, Hematuria, Incontinence, Retention, Urgency Musculoskeletal: Reports: As per HPI. Denies: Arthralgia, Back pain, Gout, Joint swelling, Myalgia, Neck pain Skin: Reports: As per HPI. Denies: Bruising, Change in color, Change in hair/ nails, Lesions, Pruritus, Rash Neurological: Reports: As per HPI. Denies: Abnormal gait, Confusion, Headache, Numbness, Paresthesias, Seizure, Tingling, Tremors, Vertigo, Weakness Psychiatric: Reports: As per HPI. Denies: Anxiety, Auditory hallucinations, Depression, Homicidal thoughts, Suicidal thoughts, Visual hallucinations Hematological/Lymphatic: Reports: As per HPI. Denies: Anemia, Blood Clots, Easy bleeding, Easy bruising, Swollen glands <Radha Rendon - Last Filed: 10/15/17 06:48> Past Medical History - SOCIAL HISTORY Smoking Status: Current every day smoker Alcohol Use: Rare Drug Use: Heavy Drug Use Detail:: Marijuana - RESPIRATORY Hx Respiratory Disorders: No - CARDIOVASCULAR Hx Cardio Disorders: No - NEURO Hx Neuro Disorders: No - GI Hx GI Disorders: Yes Hx Abdominal Pain: Yes - Hx Genitourinary Disorders: Yes Hx Kidney Stones: Yes (02/15) - ENDOCRINE Hx Endocrine Disorders: No Hx Diabetes: No Hx Thyroid Disease: No - MUSCULOSKELETAL Hx Musculoskeletal Disorders: No - PSYCH Hx Psych Problems: Yes Hx Anxiety: Yes Hx Depression: Yes - HEMATOLOGY/ONCOLOGY Hx Hematology/Oncology Disorders: No <Radha Rendon - Last Filed: 10/15/17 06:48> Family Medical History Any Significant Family History?: Yes Hx Cancer: Mother *Cancer Comment: M-Breast <Radha Rendon - Last Filed: 10/15/17 06:48> Physical Exam - General General Appearance: Alert, Oriented x3, Cooperative, Mild distress, Other ( cachectic) - Head Head exam: Normal inspection - Eye Eye exam: Normal appearance, PERRL, EOMI Pupils: Normal accommodation - ENT ENT exam: Normal exam, Mucous membranes moist, Normal external ear exam, Normal orophraynx Ear exam: Normal external inspection. negative: External canal tenderness Nasal Exam: Normal inspection. negative: Discharge, Sinus tenderness Mouth exam: Normal external inspection, Tongue normal Teeth exam: Normal inspection. negative: Dental caries Throat exam: Normal inspection. negative: Tonsillar erythema, Tonsillar exudate - Neck Neck exam: Normal inspection, Full ROM. negative: Tenderness - Respiratory Respiratory exam: Normal lung sounds bilaterally. negative: Respiratory distress - Cardiovascular Cardiovascular Exam: Regular rate, Normal rhythm, Normal heart sounds - GI/Abdominal GI/Abdominal exam: Soft, Normal bowel sounds, Tenderness (epigastric) - Rectal Rectal exam: Deferred - exam: Deferred - Extremities Extremities exam: Normal inspection, Full ROM, Normal capillary refill. negative: Tenderness - Back Back exam: Reports: Normal inspection, Full ROM. Denies: Muscle spasm, Rash noted, Tenderness - Neurological Neurological exam: Alert, CN II-XII intact, Normal gait, Oriented X3 - Psychiatric Psychiatric exam: Normal affect, Normal mood - Skin Skin exam: Dry, Intact, Normal color, Warm <Radha Rendon - Last Filed: 10/15/17 06:48> Course Vital Signs 10/15/17 05:55 Temperature 97.9 F Pulse Rate 60 Respiratory 24 Rate Blood Pressure 118/99 Pulse Ox 96 - Reevaluation(s) Reevaluation #1: 10/15/17 06:[address] fajardo <Radha Rendon - Clark Filed: 10/15/17 06:48> Vital Signs 10/15/17 10/15/17 05:55 07:12 Temperature 97.9 F Pulse Rate 60 Pulse Rate [ 85 Pulse Ox Probe] Respiratory 24 20 Rate Blood Pressure 118/99 Blood Pressure 124/102 [Right Arm] Pulse Ox 96 98 - Reevaluation(s) Reevaluation #2: I did discuss the patient with Dr. Rendon and did re-examine the patient. She states she feels no better at this time. She now states the only thing that helps her is Dilaudid. I did explain to her that I do not feel that medicine is appropriate to give for this condition. Since she is no better we will try some Zofran and Ofirmiv for pain. 10/15/17 07:37 Reevaluation #3: The patient is doing a lot better at this time. Her pain has resolved and she is resting comfortably. On exam her abdomen is very soft and nontender in all 4 quads. 10/15/17 08:50 Reevaluation #4: The patient is doing much better at this time. She is resting comfortably with no nausea or vomiting. On exam her abdomen is very soft and nontender in all 4 quads. 10/15/17 10:05 Reevaluation #5: The patient is doing a lot better at this time. She is up walking with no problems and denies any nausea or AP. I did discuss the need to take her home Zofran and to stop smoking marijuana. 10/15/17 12:11 <Jorge Fajardo - Last Filed: 10/15/17 12:13> Medical Decision Making - Lab Data Result diagrams: 10/15/17 06:02 10/15/17 06:02 <Radha Rendon - Last Filed: 10/15/17 06:48> - Lab Data Result diagrams: 10/15/17 06:02 10/15/17 06:02 Lab Results 10/15/17 10/15/17 10/15/17 Range/Units 06:02 06:02 06:02 WBC 10.1 (4.2-12.2) K/uL RBC 5.03 (3.80-5.40) M/uL Hgb 13.7 (11.6-16.0) gm/dl Hct 41.3 (35.0-47.0) % MCV 82.1 (81-97) fl MCH 27.2 (27-33) pg MCHC 33.2 (32-36) g/dl RDW 14.5 (11.5-14.5) % Plt Count 343 (130-400) K/uL MPV 10.4 (7.4-10.4) fl Neutrophils % 67.0 (47-80) % Eosinophils % Not Reportable Basophils % Not Reportable Lymphocytes 21.0 (16-45) % Monocytes 4.0 (0-9) % Eosinophil Count 8.0 H (0-6) % Sodium 143 (136-145) mmol/L Potassium 3.5 (3.4-4.5) mmol/L Chloride 105 (98-107) mmol/L Carbon Dioxide 20.0 L (22-29) mmol/L Anion Gap 18.0 H (7-16) BUN 8 (6-20) mg/dL Creatinine 0.7 (0.5-0.9) mg/dL Estimated GFR > 60 mL/min Random Glucose 106 (74-109) mg/dL Calcium 8.9 (8.6-10.0) mg/dL Total Bilirubin 0.20 (0.2-1.0) mg/dL AST 16 (10.0-35.0) U/L ALT 11 (<33) U/L Alkaline Phosphatase 75 (35-104) U/L Total Protein 7.9 (6.6-8.7) g/dL Albumin 4.6 (4.0-5.0) g/dL Globulin 3.3 (1.4-4.8) gm/dL Albumin/Globulin Ratio 1.4 (1.1-1.8) Lipase 22 (13-60) U/L Urine Color Urine Appearance Urine pH (5.0-8.0) Ur Specific [place] (1.002-1.030) Urine Protein (NEGATIVE) Urine Glucose (UA) (NEGATIVE) Urine Ketones (NEGATIVE) Urine Blood (NEGATIVE) Urine Nitrite (NEGATIVE) Urine Bilirubin (NEGATIVE) Urine Urobilinogen (0.20 - 1.00) E.U./dL Ur Leukocyte Esterase (NEGATIVE) Urine HCG, Qual (NEGATIVE) Ethyl Alcohol (0-0.010) g/dL 10/15/17 10/15/17 Range/Units 06:02 06:16 WBC (4.2-12.2) K/uL RBC (3.80-5.40) M/uL Hgb (11.6-16.0) gm/dl Hct (35.0-47.0) % MCV (81-97) fl MCH (27-33) pg MCHC (32-36) g/dl RDW (11.5-14.5) % Plt Count (130-400) K/uL MPV (7.4-10.4) fl Neutrophils % (47-80) % Eosinophils % Basophils % Lymphocytes (16-45) % Monocytes (0-9) % Eosinophil Count (0-6) % Sodium (136-145) mmol/L Potassium (3.4-4.5) mmol/L Chloride (98-107) mmol/L Carbon Dioxide (22-29) mmol/L Anion Gap (7-16) BUN (6-20) mg/dL Creatinine (0.5-0.9) mg/dL Estimated GFR mL/min Random Glucose (74-109) mg/dL Calcium (8.6-10.0) mg/dL Total Bilirubin (0.2-1.0) mg/dL AST (10.0-35.0) U/L ALT (<33) U/L Alkaline Phosphatase (35-104) U/L Total Protein (6.6-8.7) g/dL Albumin (4.0-5.0) g/dL Globulin (1.4-4.8) gm/dL Albumin/Globulin Ratio (1.1-1.8) Lipase (13-60) U/L Urine Color Yellow Urine Appearance Clear Urine pH 6.0 (5.0-8.0) Ur Specific [place] 1.025 (1.002-1.030) Urine Protein Negative (NEGATIVE) Urine Glucose (UA) Negative (NEGATIVE) Urine Ketones Negative (NEGATIVE) Urine Blood Negative (NEGATIVE) Urine Nitrite Negative (NEGATIVE) Urine Bilirubin Negative (NEGATIVE) Urine Urobilinogen 0.2 (0.20 - 1.00) E.U./dL Ur Leukocyte Esterase Negative (NEGATIVE) Urine HCG, Qual Negative (NEGATIVE) Ethyl Alcohol 0.110 H (0-0.010) g/dL <Jorge Fajardo - Last Filed: 10/15/17 12:13> Disposition <Radha Rendon - Last Filed: 10/15/17 06:48> Disposition: Discharge Time of Disposition: 12:13 <Jorge Fajardo - Last Filed: 10/15/17 12:13> Clinical Impression: Cyclic vomiting syndrome Qualifiers: Vomiting Intractability: unspecified Nausea presence: unspecified Qualified Code(s): G43.A0 - Cyclical vomiting, not intractable Disposition: Home, Self-Care Condition: (2) Stable Instructions: Acute Nausea and Vomiting (ED) Additional Instructions: PLease take your Zofran at home and please see your family doctor if not better in 1-2 days. Please stop smoking marijuana please and return to the ER for any worsening symptoms. Forms: Patient Portal Access Quality - Blood Pressure Screening Does Patient Have Any of the Following: No Blood Pressure Classification: Hypertensive Reading Systolic Measurement: 118 Diastolic Measurement: 99 <Radha Rendon - Last Filed: 10/15/17 06:48> - Blood Pressure Screening Does Patient Have Any of the Following: No Blood Pressure Classification: Hypertensive Reading Systolic Measurement: 118 Diastolic Measurement: 99 <Jorge Fajardo - Last Filed: 10/15/17 12:13>
[2017-10-15 06:35] LABS: BLOOD UREA NITROGEN 8 mg/dL (6-20); CREATININE 0.7 mg/dL (0.5-0.9); EST GLOMERULAR FILTRATION RATE > 60 mL/min
[2017-10-15 06:36] LABS: TOTAL PROTEIN 7.9 g/dL (6.6-8.7)
[2017-10-15 06:38] LABS: GLUCOSE,RANDOM 106 mg/dL (74-109)
[2017-10-15 06:41] LABS: ALB/GLOB RATIO 1.4 (1.1-1.8); ALBUMIN 4.6 g/dL (4.0-5.0); ALKALINE PHOSPHATASE 75 U/L (35-104); ALT/SGPT 11 U/L (<33); AST/SGOT 16 U/L (10.0-35.0)
[2017-10-15 06:42] LABS: URINE BILIRUBIN NEGATIVE (NEGATIVE); URINE BLOOD NEGATIVE (NEGATIVE); URINE GLUCOSE (UA) NEGATIVE (NEGATIVE); URINE KETONE NEGATIVE (NEGATIVE); URINE LEUKOCYTE ESTERASE NEGATIVE (NEGATIVE); URINE NITRITE NEGATIVE (NEGATIVE); URINE PROTEIN NEGATIVE (NEGATIVE); URINE UROBILINOGEN 0.2 E.U./dL (0.20 - 1.00)
[2017-10-15 06:58] LABS: URINE APPEARANCE CLEAR; URINE COLOR YELLOW
[2017-10-15 07:01] LABS: HCG,QUALITATIVE URINE NEGATIVE (NEGATIVE)
[2017-10-15] MEDS ORDERED: ACETAMINOPHEN 1,000 MG/100 ML BTL IVPB ONE (07:36)
[2017-10-15] MEDS ORDERED: ONDANSETRON HCL IV 4 MG/2 ML VIAL IVP ONE (07:36)
[2017-10-15 07:53] LABS: AMPHETAMINE SCREEN URINE NOT DETECTED; BARBITURATE SCREEN URINE NOT DETECTED; BENZODIAZEPINE SCREEN URINE NOT DETECTED; COCAINE SCREEN URINE NOT DETECTED; METHADONE SCREEN URINE NOT DETECTED; METHAMPHETAMINE SCREEN NOT DETECTED; OPIATE SCREEN URINE NOT DETECTED; OXYCODONE SCREEN URINE NOT DETECTED; PHENCYCLIDINE SCREEN URINE NOT DETECTED; PROPOXYPHENE SCREEN URINE NOT DETECTED; THC SCREEN URINE NOT DETECTED; TRICYCLIC ANTIDEPRESSANT SCRN NOT DETECTED
[2017-10-15] MEDS ORDERED: LORAZEPAM 2 MG/ML VIAL IV ONE (08:13)
== END 2017-10-15 12:19 | disposition home or self-care (01) ==
LOC: ER 05:52
DX: G43.A0 Cyclical vomiting, in migraine, not intractable (principal); T40.7X5A Adverse effect of cannabis (derivatives), initial encounter; R10.13 Epigastric pain; F17.210 Nicotine dependence, cigarettes, uncomplicated
CPT/HCPCS: 99284 ×2; 96365; 96361; 83690; 80053; 81003; 81025; 80305; 85027; G0480; J2405; J2060; 80320; J2550; J7030

== ENCOUNTER 2018-05-06 03:24 | Emergency (ER) | payer SELFPAY ==
[2018-05-06] MEDS ORDERED: ONDANSETRON HCL IV 4 MG/2 ML VIAL IVP ONE (03:35)
[2018-05-06] MEDS ORDERED: 0.9 % SODIUM CHLORIDE 1,000 ML BAG IV ONE (03:35)
[2018-05-06] MEDS ORDERED: ACETAMINOPHEN 1,000 MG/100 ML BTL IVPB ONE (03:35)
--- NOTE | 2018-05-06 03:40 | Emergency Department Record ---
History of Present Illness - General Chief complaint: Vomiting Stated complaint: VOMITING Time Seen by Provider: 05/06/18 03:34 Source: Patient, Family Mode of Arrival: Ambulatory Limitations: No limitations - History of Present Illness Initial comments: 27 yo female presents with nausea, vomiting, abdominal pain. The onset was around 10am this Monday morning. The symptoms slowing increased over the day. No blood in the vomit. No diarrhea. She has had her gall bladder removed. She states occasionally she has "episodes" like this with nausea and vomiting. She states she has had a scope in the past. She has been advised that marijuana can cause this as well with chronic use. She states she has cut back. Her reports he was sick yesterday with nausea and vomiting without diarrhea. Abdominal CT 05/2017 was negative for any acute process. MD complaint: Abdominal pain, Nausea, Vomiting Onset/Timin -: Hour(s) Description of Vomiting: Watery Description of Diarrhea: Water Associated Abdominal Pain: Yes Location: Periumbilcal Radiation: None Severity: Moderate Severity scale (1-10): 6 Quality: Aching, Sharp Consistency: Constant, Getting worse Improves with: None Worsens with: None Context: Other Associated Symptoms: Nausea/vomiting - Related Data Previous Rx's Medication Instructions Recorded Ondansetron [Zofran Odt] 4 mg PO Q8H #15 tab.[email or web address] 05/13/17 Nitrofurantoin Monohyd/M-Cryst 100 mg PO BID #14 capsule 05/06/18 [Macrobid 100 mg Capsule] Ondansetron [Zofran Odt] 4 mg PO Q8H #30 tab.[email or web address] 05/06/18 Allergies Allergy/AdvReac Type Severity Reaction Status Date / Time morphine AdvReac VOMITING Verified 05/13/17 09:48 Travel Screening - Travel/Exposure Within Last 30 Days Have you traveled within the last 30 days?: No - Travel Symptoms Symptom Screening: None Review of Systems Constitutional: Denies: Chills, Fever, Malaise, Weakness Eyes: Denies: Eye discharge ENT: Denies: Congestion, Throat pain Respiratory: Denies: Cough, Dyspnea Cardiovascular: Denies: Chest pain, Syncope Endocrine: Denies: Fatigue, Polydipsia, Polyuria Gastrointestinal: Reports: Abdominal pain, Nausea, Vomiting Genitourinary: Denies: Dysuria, Urgency Musculoskeletal: Denies: Arthralgia, Back pain, Myalgia Skin: Denies: Bruising, Change in color, Rash Neurological: Denies: Headache Psychiatric: Denies: Anxiety Hematological/Lymphatic: Denies: Easy bleeding, Easy bruising Past Medical History - SOCIAL HISTORY Smoking Status: Never smoker Alcohol Use: None Drug Use: Heavy Drug Use Detail:: Marijuana - RESPIRATORY Hx Respiratory Disorders: No - CARDIOVASCULAR Hx Cardio Disorders: No - NEURO Hx Neuro Disorders: No - GI Hx GI Disorders: Yes Hx Abdominal Pain: Yes - Hx Genitourinary Disorders: Yes Hx Kidney Stones: Yes (02/15) - ENDOCRINE Hx Endocrine Disorders: No Hx Diabetes: No Hx Thyroid Disease: No - MUSCULOSKELETAL Hx Musculoskeletal Disorders: No - PSYCH Hx Psych Problems: Yes Hx Anxiety: Yes Hx Depression: Yes - HEMATOLOGY/ONCOLOGY Hx Hematology/Oncology Disorders: No Family Medical History Any Significant Family History?: Yes Hx Cancer: Mother *Cancer Comment: M-Breast Physical Exam - General General Appearance: Alert, Oriented x3, Cooperative, No acute distress Limitations: No limitations - Head Head exam: Atraumatic, Normal inspection - Eye Eye exam: Normal appearance, PERRL. negative: Conjunctival injection, Scleral icterus - ENT ENT exam: Normal exam, Mucous membranes moist Ear exam: Normal external inspection Nasal Exam: Normal inspection Mouth exam: Normal external inspection - Neck Neck exam: Normal inspection - Respiratory Respiratory exam: Normal lung sounds bilaterally. negative: Respiratory distress - Cardiovascular Cardiovascular Exam: Regular rate, Normal rhythm, Normal heart sounds - GI/Abdominal GI/Abdominal exam: Soft, Tenderness (tender epigastric but soft). negative: Distended, Guarding - Rectal Rectal exam: Deferred - exam: Deferred - Extremities Extremities exam: Normal inspection. negative: Tenderness - Back Back exam: Denies: CVA tenderness (R), CVA tenderness (L) - Neurological Neurological exam: Alert, Normal gait, Oriented X3 - Psychiatric Psychiatric exam: Normal affect, Normal mood. negative: Agitated, Anxious - Skin Skin exam: Dry, Intact, Normal color, Warm Course Vital Signs 05/06/18 03:26 Temperature 97.6 F Pulse Rate 86 Respiratory 18 Rate Blood Pressure 117/79 Pulse Ox 100 - Reevaluation(s) Reevaluation #1: 05/06/18 03:55 No acute changes on the CBC 05/06/18 04:23 No acute changes in the CMP or Lipase 05/06/18 05:13 The nausea continues to come and go The epigastric pain comes and goes as well 05/06/18 05:47 The UCG is negative The UA was N -, LE trace, few bacteria, 10-15 WBC's possible UTI 05/06/18 06:32 At this time the patient is feeling relief of the nausea RX for Macrobid and Zofran provided 2nd Liter of NS infusing 05/06/18 06:50 No vomiting still with controlled nausea The patient is doing well and is comfortable with DC. DC vitals were reviewed. We discussed at length reasons to immediately return to the ED as well as close follow up. The patient will call the PCP for close follow up of this ED visit to review this visit and the tests performed Medical Decision Making - Lab Data Result diagrams: 05/06/18 03:40 05/06/18 03:40 Disposition Disposition: Discharge Clinical Impression: UTI (urinary tract infection) Nausea and vomiting Qualifiers: Vomiting type: unspecified Vomiting Intractability: unspecified Qualified Code( s): R11.2 - Nausea with vomiting, unspecified Condition: (1) Good Instructions: Urinary Tract Infection in Women (ED), Acute Nausea and Vomiting (ED) Additional Instructions: Call your doctor for the next available follow up appointment Return to the ER for a recheck if worse, any new concerns or questions Take the prescriptions provided as directed Review this ER visit and the tests performed with your family doctor Prescriptions: Nitrofurantoin Monohyd/M-Cryst [Macrobid 100 mg Capsule] 100 mg PO BID #14 capsule Ondansetron [Zofran Odt] 4 mg PO Q8H #30 tab.rapdis Forms: Patient Portal Access Time of Disposition: 06:51 Quality - Quality Measures Quality Measures: N/A - Blood Pressure Screening Does Patient Have Any of the Following: No Blood Pressure Classification: Normal BP Reading Systolic Measurement: 117 Diastolic Measurement: 79 Screening for High Blood Pressure: < Normal BP, F/U Not Required > [G8783]
[2018-05-06] MEDS ORDERED: PROMETHAZINE HCL 12.5 MG in 0.9 % SODIUM CHLORIDE 100ML 100 ML IVPB ONE ×2 (03:46→04:38)
[2018-05-06 03:47] LABS: BASO % 0.4 % (0-6); EOS % 7.4 % (0-6); GRAN % 76.8 % (47-80); HEMATOCRIT 42.5 % (35.0-47.0); HEMOGLOBIN 14.3 gm/dl (11.6-16.0); LYMPH % 11.5 % (16-45); MEAN CELL VOLUME 85.5 fl (81-97); MEAN CORPUSCULAR HEMOGLOBIN 28.8 pg (27-33); MEAN CORPUSCULAR HGB CONC 33.6 g/dl (32-36); MEAN PLATELET VOLUME 10.5 fl (7.4-10.4); MONO % 3.9 % (0-9); PLATELET COUNT 299 K/uL (130-400); RED BLOOD COUNT 4.97 M/uL (3.80-5.40); RED CELL DISTRIBUTION WIDTH 13.7 % (11.5-14.5); WHITE BLOOD COUNT W/O DIFF 11.2 K/uL (4.2-12.2)
[2018-05-06 03:58] LABS: BLOOD UREA NITROGEN 8 mg/dL (6-20); CREATININE 0.7 mg/dL (0.5-0.9); EST GLOMERULAR FILTRATION RATE > 60 mL/min
[2018-05-06 03:59] LABS: LIPASE 19 U/L (13-60); TOTAL PROTEIN 8.3 g/dL (6.6-8.7)
[2018-05-06 04:01] LABS: GLUCOSE,RANDOM 115 mg/dL (74-109)
[2018-05-06 04:03] LABS: ALB/GLOB RATIO 1.2 (1.1-1.8); ALBUMIN 4.5 g/dL (4.0-5.0); ALKALINE PHOSPHATASE 82 U/L (45-87); ALT/SGPT 11 U/L (<33); AST/SGOT 15 U/L (10.0-35.0)
[2018-05-06 04:43] LABS: URINE APPEARANCE SL CLOUDY; URINE BILIRUBIN NEGATIVE (NEGATIVE); URINE BLOOD NEGATIVE (NEGATIVE); URINE COLOR YELLOW; URINE GLUCOSE (UA) NEGATIVE (NEGATIVE); URINE KETONE TRACE (NEGATIVE); URINE LEUKOCYTE ESTERASE TRACE (NEGATIVE); URINE NITRITE NEGATIVE (NEGATIVE); URINE PROTEIN TRACE (NEGATIVE)
[2018-05-06] MEDS ORDERED: DIPHENHYDRAMINE HCL 50 MG/ML VIAL IVP ONE (04:47)
[2018-05-06 04:51] LABS: URINE BACTERIA FEW; URINE EPITHELIAL CELLS 0 - 2 (FEW); URINE RBC 0 - 2 (NONE SEEN)
[2018-05-06] MEDS ORDERED: 0.9 % SODIUM CHLORIDE 1000ML 1,000 ML IV ONE (05:12)
[2018-05-06] MEDS ORDERED: LORAZEPAM 2 MG/ML VIAL IV ONE (05:12)
[2018-05-06] MEDS ORDERED: PANTOPRAZOLE SODIUM IV 40 MG VIAL IVP ONE (05:12)
[2018-05-06] MEDS ORDERED: ONDANSETRON 4 MG ODT TABLET SL ONE (06:49)
== END 2018-05-06 07:01 | disposition home or self-care (01) ==
LOC: ER 03:24
DX: N39.0 Urinary tract infection, site not specified (principal); R10.33 Periumbilical pain; R11.2 Nausea with vomiting, unspecified
CPT/HCPCS: 99284 ×2; 96365; 96366; 96375; 96361; 96368; 83690; 85025; 80053; 81001; 81025; J2060; C9113; J1200; J2550; J7030

== ENCOUNTER 2018-05-29 23:17 | Emergency (ER) | payer SELFPAY ==
[2018-05-29] MEDS ORDERED: ONDANSETRON HCL IV 4 MG/2 ML VIAL IVP ONE (23:20)
[2018-05-29] MEDS ORDERED: HYOSCYAMINE SULFATE ODT 0.125 MG TAB.SUBL SL ONE (23:20)
--- NOTE | 2018-05-29 23:29 | Emergency Department Record ---
History of Present Illness - General Chief Complaint: Abdominal Pain Stated Complaint: AP/N/V Time Seen by Provider: 05/29/18 23:19 Source: Patient Mode of Arrival: Ambulatory Limitations: No limitations - History of Present Illness Initial Comments: 27 yo female presents to ED for evaluation of nausea, vomiting, and loose stools that began approximately 12 hours ago. Patient reports a long-standing history of similar symptoms with unknown etiology. Patient reports previous evaluation by a GI specialist who recommended gallbladder removal, patient did have surgery but it has not improved her symptoms. Patient does report that she uses marijuana daily despite previous instructions to reduce her marijuana use as this may contribute to her repeated vomiting symptoms. MD Complaint: Abdominal pain Onset/Timin -: Hour(s) Location: Diffuse Radiation: None Migration to: No migration Severity: Moderate Quality: Aching Consistency: Constant Improves With: Nothing Worsens With: Nothing Associated Symptoms: Denies other symptoms - Related Data Previous Rx's Medication Instructions Recorded Ondansetron [Zofran Odt] 4 mg PO Q8H #15 tab.rapdis 05/13/17 Nitrofurantoin Monohyd/M-Cryst 100 mg PO BID #14 capsule 05/06/18 [Macrobid 100 mg Capsule] Ondansetron [Zofran Odt] 4 mg PO Q8H #30 tab.rapdis 05/06/18 Allergies Allergy/AdvReac Type Severity Reaction Status Date / Time morphine AdvReac VOMITING Verified 05/13/17 09:48 Review of Systems Constitutional: Denies: Chills, Fever, Malaise, Night sweats Eyes: Denies: Eye discharge, Eye pain ENT: Denies: Congestion, Ear pain, Epistaxis Respiratory: Denies: Cough, Dyspnea Cardiovascular: Denies: Chest pain, Dyspnea on exertion Endocrine: Denies: Fatigue, Heat or cold intolerance Gastrointestinal: Reports: Abdominal pain, Diarrhea, Nausea, Vomiting. Denies: Constipation Genitourinary: Denies: Incontinence, Retention Musculoskeletal: Denies: Arthralgia, Back pain, Gout, Joint swelling Skin: Denies: Bruising, Change in color Neurological: Denies: Abnormal gait, Confusion, Headache, Seizure Psychiatric: Denies: Anxiety Hematological/Lymphatic: Denies: Anemia, Blood Clots Past Medical History - SOCIAL HISTORY Smoking Status: Never smoker Drug Use: Heavy Drug Use Detail:: Marijuana - RESPIRATORY Hx Respiratory Disorders: No - CARDIOVASCULAR Hx Cardio Disorders: No - NEURO Hx Neuro Disorders: No - GI Hx GI Disorders: Yes Hx Abdominal Pain: Yes - Hx Genitourinary Disorders: Yes Hx Kidney Stones: Yes (02/15) - ENDOCRINE Hx Endocrine Disorders: No Hx Diabetes: No Hx Thyroid Disease: No - MUSCULOSKELETAL Hx Musculoskeletal Disorders: No - PSYCH Hx Psych Problems: Yes Hx Anxiety: Yes Hx Depression: Yes - HEMATOLOGY/ONCOLOGY Hx Hematology/Oncology Disorders: No Family Medical History Hx Cancer: Mother *Cancer Comment: M-Breast Physical Exam - General General Appearance: Alert, Oriented x3, Cooperative, Mild distress, Other ( Cachetic appearing on examination) Limitations: No limitations - Head Head exam: Atraumatic, Normocephalic, Normal inspection Head exam detail: negative: Abrasion, Contusion, Melo's sign, General tenderness, Hematoma, Laceration - Eye Eye exam: Normal appearance. negative: Conjunctival injection, Periorbital swelling, Periorbital tenderness, Scleral icterus - ENT Ear exam: negative: Auricular hematoma, Auricular trauma Nasal Exam: negative: Active bleeding, Discharge, Dried blood, Foreign body Mouth exam: negative: Drooling, Laceration, Muffled voice, Tongue elevation - Neck Neck exam: Normal inspection. negative: Meningismus, Tenderness - Respiratory Respiratory exam: Normal lung sounds bilaterally. negative: Rales, Respiratory distress, Rhonchi, Stridor - Cardiovascular Cardiovascular Exam: Regular rate, Normal rhythm, Normal heart sounds - GI/Abdominal GI/Abdominal exam: Soft, Tenderness (Mild, diffuse TTP withotu peritoneal signs on examination). negative: Rebound, Rigid - Rectal Rectal exam: Deferred - exam: Deferred - Extremities Extremities exam: Normal inspection. negative: Pedal edema, Tenderness - Back Back exam: Denies: CVA tenderness (R), CVA tenderness (L) - Neurological Neurological exam: Alert, Normal gait, Oriented X3 - Psychiatric Psychiatric exam: Flat affect - Skin Skin exam: Normal color. negative: Abrasion Type of lesion: negative: abrasion Course Vital Signs 05/29/18 23:22 Temperature 98.4 F Pulse Rate [ 114 H Pulse Ox Probe] Respiratory 24 Rate Blood Pressure 124/84 [Left Arm] Pulse Ox 97 - Reevaluation(s) Reevaluation #1: 05/29/18 05/12/17: CT Abdomen and Pelvis: Follicular change to both ovaries Small amount FF cul de sac. Non-visualization of the appendix No secondary signs of appendicitis Reevaluation #2: 05/30/18 00:15 Laboratory studies were reviewed and are grossly unremarkable for an acute process. Reevaluation #3: 05/30/18 00:43 Urinalysis reviewed and appears negative for infection. UDS positive for cannabis and TCAs. Patient was reassessed, no vomiting while in the ED. Patient was counseled that her daily marijuana use may be contributing to her nausea/vomiting symptoms, recommended reduce use of marijuana. Patient appears stable for discharge at this time. Medical Decision Making - Lab Data Result diagrams: 05/29/18 23:45 05/29/18 23:45 Disposition Disposition: Discharge Clinical Impression: Marijuana use Nausea and vomiting Qualifiers: Vomiting type: unspecified Vomiting Intractability: non-intractable Qualified Code(s): R11.2 - Nausea with vomiting, unspecified Disposition: Home, Self-Care Condition: (2) Stable Instructions: Acute Nausea and Vomiting (ED) Additional Instructions: Return to ED if your symptoms worsen or if you have any concerns. Phenergan as directed. Follow-up with your family doctor in 3-5 days as directed. Forms: Patient Portal Access Time of Disposition: 00:45 Quality - Quality Measures Quality Measures: N/A - Blood Pressure Screening Does Patient Have Any of the Following: No Blood Pressure Classification: Normal BP Reading Systolic Measurement: 117 Diastolic Measurement: 74 Screening for High Blood Pressure: < Normal BP, F/U Not Required > [G8783]
[2018-05-29] MEDS ORDERED: 0.9 % SODIUM CHLORIDE 1000ML 1,000 ML IV SCH (23:30)
[2018-05-29 23:56] LABS: BASO % 0.1 % (0-6); EOS % 2.2 % (0-6); HEMATOCRIT 39.8 % (35.0-47.0); HEMOGLOBIN 13.4 gm/dl (11.6-16.0); LYMPH % 4.2 % (16-45); MEAN CELL VOLUME 83.1 fl (81-97); MEAN CORPUSCULAR HGB CONC 33.7 g/dl (32-36); MEAN PLATELET VOLUME 10.1 fl (7.4-10.4); PLATELET COUNT 308 K/uL (130-400); RED BLOOD COUNT 4.79 M/uL (3.80-5.40); RED CELL DISTRIBUTION WIDTH 13.4 % (11.5-14.5); WHITE BLOOD COUNT W/O DIFF 8.6 K/uL (4.2-12.2)
[2018-05-30 00:05] LABS: BLOOD UREA NITROGEN 12 mg/dL (6-20); CREATININE 0.7 mg/dL (0.5-0.9); EST GLOMERULAR FILTRATION RATE > 60 mL/min
[2018-05-30 00:06] LABS: LIPASE 16 U/L (13-60); TOTAL PROTEIN 7.8 g/dL (6.6-8.7)
[2018-05-30 00:08] LABS: GLUCOSE,RANDOM 104 mg/dL (74-109)
[2018-05-30 00:10] LABS: ALB/GLOB RATIO 1.2 (1.1-1.8); ALBUMIN 4.2 g/dL (4.0-5.0); ALT/SGPT 12 U/L (<33); AST/SGOT 12 U/L (10.0-35.0)
[2018-05-30 00:11] LABS: ALKALINE PHOSPHATASE 73 U/L (45-87)
[2018-05-30 00:12] LABS: ANISOCYTOSIS 1+; OVALOCYTES 1+; PLATELET ESTIMATE NORMAL (NORMAL)
[2018-05-30 00:36] LABS: URINE APPEARANCE CLOUDY; URINE BILIRUBIN SMALL (NEGATIVE); URINE BLOOD NEGATIVE (NEGATIVE); URINE COLOR YELLOW; URINE GLUCOSE (UA) NEGATIVE (NEGATIVE); URINE KETONE 15 mg/dL (NEGATIVE); URINE LEUKOCYTE ESTERASE TRACE (NEGATIVE); URINE NITRITE NEGATIVE (NEGATIVE); URINE PROTEIN TRACE (NEGATIVE); URINE UROBILINOGEN 0.2 E.U./dL (0.20 - 1.00)
[2018-05-30 00:38] LABS: BARBITURATE SCREEN URINE NOT DETECTED; BENZODIAZEPINE SCREEN URINE NOT DETECTED; METHADONE SCREEN URINE NOT DETECTED; THC SCREEN URINE DETECTED; TRICYCLIC ANTIDEPRESSANT SCRN DETECTED
[2018-05-30 00:39] LABS: AMPHETAMINE SCREEN URINE NOT DETECTED; COCAINE SCREEN URINE NOT DETECTED; METHAMPHETAMINE SCREEN NOT DETECTED; OPIATE SCREEN URINE NOT DETECTED; OXYCODONE SCREEN URINE NOT DETECTED; PHENCYCLIDINE SCREEN URINE NOT DETECTED; PROPOXYPHENE SCREEN URINE NOT DETECTED
[2018-05-30 00:44] LABS: URINE AMORPHOUS SEDIMENT 4+; URINE EPITHELIAL CELLS 0 - 2 (FEW); URINE MUCUS HEAVY; URINE RBC 0 - 2 (NONE SEEN)
[2018-05-30] MEDS ORDERED: DIPHENHYDRAMINE HCL 25 MG CAPSULE PO ONE (00:47)
== END 2018-05-30 00:58 | disposition home or self-care (01) ==
LOC: ER 23:17
DX: R11.2 Nausea with vomiting, unspecified (principal); R19.7 Diarrhea, unspecified; R10.9 Unspecified abdominal pain; F12.90 Cannabis use, unspecified, uncomplicated
CPT/HCPCS: 99284 ×2; 96374; 83690; 80053; 81001; 81025; 80305; 85027; J1980; J2405

== ENCOUNTER 2018-09-12 01:40 | Emergency (ER) | payer SELFPAY ==
[2018-09-12] MEDS ORDERED: ONDANSETRON HCL IV 4 MG/2 ML VIAL IVP PRN (01:47)
[2018-09-12] MEDS ORDERED: HYOSCYAMINE SULFATE ODT 0.125 MG TAB.SUBL SL ONE (01:48)
--- NOTE | 2018-09-12 01:53 | Emergency Department Record ---
History of Present Illness - General Chief Complaint: Abdominal Pain Stated Complaint: ABDOMINAL PAIN Time Seen by Provider: 09/12/18 01:41 Source: Patient Mode of Arrival: Ambulatory Limitations: No limitations - History of Present Illness Initial Comments: 27 yo female presents to ED for evaluation of nausea, vomiting, and abdominal cramping symptoms that began earlie this evening. Patient reports a history of hyperemesis due to chronic marijuana use, denies fevers, chills, or change in stools. Patient has taken Zofran at home without significant improvement in her symptoms. Patient reports previous cholecystectomy and EGD for her ongoing sym ptoms. MD Complaint: Other Onset/Timin -: Days(s) Location: Diffuse Migration to: No migration Severity: Moderate Quality: Cramping Consistency: Constant Improves With: Nothing Worsens With: Nothing Associated Symptoms: Denies other symptoms - Related Data Home Medications Medication Instructions Recorded Confirmed Last Taken Beclomethasone Dipropionate [Qvar 2 puff INH DAILY 09/12/18 09/12/18 Unknown Redihaler] Diphenhydramine HCl [Benadryl] 50 mg PO DAILY PRN 09/12/18 09/12/18 Unknown Ondansetron [Zofran Odt] 4 mg PO Q8H 09/12/18 09/12/18 Unknown Allergies Allergy/AdvReac Type Severity Reaction Status Date / Time No Known Drug Allergies Allergy Verified 09/12/18 01:53 Review of Systems Constitutional: Denies: Chills, Fever, Malaise, Night sweats Eyes: Denies: Eye discharge, Eye pain ENT: Denies: Congestion, Ear pain, Epistaxis Respiratory: Denies: Cough, Dyspnea Cardiovascular: Denies: Chest pain, Dyspnea on exertion Endocrine: Denies: Fatigue, Heat or cold intolerance Gastrointestinal: Reports: Abdominal pain, Nausea, Vomiting. Denies: Constipation Genitourinary: Denies: Incontinence, Retention Musculoskeletal: Denies: Arthralgia, Back pain Skin: Denies: Bruising, Change in color Neurological: Denies: Abnormal gait, Confusion, Headache, Seizure Psychiatric: Denies: Anxiety Hematological/Lymphatic: Denies: Anemia, Blood Clots Past Medical History - SOCIAL HISTORY Smoking Status: Never smoker Alcohol Use: None Drug Use: Heavy Drug Use Detail:: Marijuana - RESPIRATORY Hx Respiratory Disorders: No - CARDIOVASCULAR Hx Cardio Disorders: No - NEURO Hx Neuro Disorders: No - GI Hx GI Disorders: Yes Hx Abdominal Pain: Yes - Hx Genitourinary Disorders: Yes Hx Kidney Stones: Yes (02/15) - ENDOCRINE Hx Endocrine Disorders: No Hx Diabetes: No Hx Thyroid Disease: No - MUSCULOSKELETAL Hx Musculoskeletal Disorders: No - PSYCH Hx Psych Problems: Yes Hx Anxiety: Yes Hx Depression: Yes - HEMATOLOGY/ONCOLOGY Hx Hematology/Oncology Disorders: No Family Medical History Any Significant Family History?: Yes Hx Cancer: Mother *Cancer Comment: M-Breast Physical Exam - General General Appearance: Alert, Oriented x3, Cooperative, Moderate distress Limitations: No limitations - Head Head exam: Atraumatic, Normocephalic, Normal inspection Head exam detail: negative: Abrasion, Contusion, Melo's sign, General tenderness, Hematoma, Laceration - Eye Eye exam: Normal appearance. negative: Conjunctival injection, Periorbital swelling, Periorbital tenderness, Scleral icterus - ENT Ear exam: negative: Auricular hematoma, Auricular trauma Nasal Exam: negative: Active bleeding, Discharge, Dried blood, Foreign body Mouth exam: negative: Drooling, Laceration, Muffled voice, Tongue elevation - Neck Neck exam: Normal inspection. negative: Meningismus, Tenderness - Respiratory Respiratory exam: Normal lung sounds bilaterally. negative: Rales, Respiratory distress, Rhonchi, Stridor - Cardiovascular Cardiovascular Exam: Regular rate, Normal rhythm, Normal heart sounds - GI/Abdominal GI/Abdominal exam: Soft, Tenderness (Mild diffuse TTP without rebound, guarding, or peritoneal signs present on examination.). negative: Rebound, Rigid - Rectal Rectal exam: Deferred - exam: Deferred - Extremities Extremities exam: Normal inspection. negative: Pedal edema, Tenderness - Back Back exam: Denies: CVA tenderness (R), CVA tenderness (L) - Neurological Neurological exam: Alert, Normal gait, Oriented X3 - Psychiatric Psychiatric exam: Normal affect, Normal mood - Skin Skin exam: Normal color. negative: Abrasion Type of lesion: negative: abrasion Course Vital Signs 09/12/18 01:45 Temperature 97.8 F Pulse Rate [ 91 H Pulse Ox Probe] Respiratory 24 Rate Blood Pressure 148/96 [Left Arm] Pulse Ox 100 - Reevaluation(s) Reevaluation #1: 09/12/18 02:32 Laboratory studies were reviewed and are grossly unremarkable for an acute process except for WBC 12.6. 06/12/19 03:04 UA was reviewed and appears negative for infection. UDS positive for cannibis. Patient has been counseled on previous episodes that cessation of marijuana may improve her symptoms. Reiterated that continued cannibis use may result in continued intermittent episodes of her hyperemesis symptoms. CT imaging does not appear indicated based on the patient's previous history of similar symptoms and abdominal examination. Patient has not vomited since arriving to the ED, reports that all medications administered here in the ED have not improved her symptoms. Patient became angry stating "what's next?". I discussed with the patient that there are no other appropriate medications for her symptoms as opiates are not indicated. Patient reports that she would like her IV removed, appears stable for discharge at this time. Medical Decision Making - Lab Data Result diagrams: 09/12/18 01:54 09/12/18 01:54 Disposition Disposition: Discharge Clinical Impression: Cannabis hyperemesis syndrome concurrent with and due to cannabis abuse Disposition: Home, Self-Care Condition: (2) Stable Instructions: Acute Nausea and Vomiting (ED) Additional Instructions: Return to ED if your symptoms worsen or if you have any concerns. Follow-up with your family doctor in 3-5 days as directed. Forms: Patient Portal Access Time of Disposition: 03:08 Quality - Quality Measures Quality Measures: N/A - Blood Pressure Screening Does Patient Have Any of the Following: No Blood Pressure Classification: Hypertensive Reading Systolic Measurement: 148 Diastolic Measurement: 96 Screening for High Blood Pressure: < First Hypertensive BP, F/U Documented > [G8950] First Hypertensive Follow-up Interventions: Referral to alternative/primary care provider.
[2018-09-12] MEDS ORDERED: 0.9 % SODIUM CHLORIDE 1000ML 1,000 ML IV SCH (02:00)
[2018-09-12 02:07] LABS: HEMATOCRIT 39.4 % (35.0-47.0); HEMOGLOBIN 13.1 gm/dl (11.6-16.0); MEAN CELL VOLUME 83.5 fl (81-97); MEAN CORPUSCULAR HEMOGLOBIN 27.8 pg (27-33); MEAN CORPUSCULAR HGB CONC 33.2 g/dl (32-36); MEAN PLATELET VOLUME 10.7 fl (7.4-10.4); PLATELET COUNT 278 K/uL (130-400); RED BLOOD COUNT 4.72 M/uL (3.80-5.40); RED CELL DISTRIBUTION WIDTH 14.2 % (11.5-14.5); WHITE BLOOD COUNT W/O DIFF 12.6 K/uL (4.2-12.2)
[2018-09-12 02:25] LABS: BLOOD UREA NITROGEN 10 mg/dL (6-20); CREATININE 0.7 mg/dL (0.5-0.9); EST GLOMERULAR FILTRATION RATE > 60 mL/min; LIPASE 26 U/L (13-60); TOTAL PROTEIN 7.3 g/dL (6.6-8.7)
[2018-09-12 02:27] LABS: GLUCOSE,RANDOM 116 mg/dL (74-109)
[2018-09-12 02:29] LABS: ABSOLUTE NEUTROPHIL COUNT 7.67
[2018-09-12 02:30] LABS: ALB/GLOB RATIO 1.4 (1.1-1.8); ALBUMIN 4.3 g/dL (4.0-5.0); ALKALINE PHOSPHATASE 62 U/L (35-104); ALT/SGPT 11 U/L (<33); ANISOCYTOSIS 1+; AST/SGOT 11 U/L (10.0-35.0); PLATELET ESTIMATE NORMAL (NORMAL)
[2018-09-12] MEDS ORDERED: KETOROLAC 30 MG/ML VIAL IVP ONE (02:37)
[2018-09-12 03:00] LABS: AMPHETAMINE SCREEN URINE NOT DETECTED; BARBITURATE SCREEN URINE NOT DETECTED; BENZODIAZEPINE SCREEN URINE NOT DETECTED; COCAINE SCREEN URINE NOT DETECTED; METHADONE SCREEN URINE NOT DETECTED; METHAMPHETAMINE SCREEN NOT DETECTED; OPIATE SCREEN URINE NOT DETECTED; OXYCODONE SCREEN URINE NOT DETECTED; PHENCYCLIDINE SCREEN URINE NOT DETECTED; PROPOXYPHENE SCREEN URINE NOT DETECTED; THC SCREEN URINE DETECTED; TRICYCLIC ANTIDEPRESSANT SCRN NOT DETECTED; URINE APPEARANCE SL CLOUDY; URINE BILIRUBIN NEGATIVE (NEGATIVE); URINE BLOOD NEGATIVE (NEGATIVE); URINE COLOR YELLOW; URINE GLUCOSE (UA) NEGATIVE (NEGATIVE); URINE KETONE NEGATIVE (NEGATIVE); URINE LEUKOCYTE ESTERASE SMALL (NEGATIVE); URINE NITRITE NEGATIVE (NEGATIVE); URINE PROTEIN NEGATIVE (NEGATIVE); URINE UROBILINOGEN 0.2 E.U./dL (0.20 - 1.00)
[2018-09-12 03:05] LABS: URINE RBC 0 - 2 (NONE SEEN); URINE WBC 16 - 20 (0-2/hpf)
[2018-09-12 03:06] LABS: HCG,QUALITATIVE URINE NEGATIVE (NEGATIVE); URINE BACTERIA FEW; URINE MUCUS LIGHT
== END 2018-09-12 03:14 | disposition home or self-care (01) ==
LOC: ER 01:40
DX: F12.188 Cannabis abuse with other cannabis-induced disorder (principal); R11.2 Nausea with vomiting, unspecified; R10.9 Unspecified abdominal pain
CPT/HCPCS: 99283; 96374; 96375; 99284; 83690; 80053; 81001; 81025; 80305; 85027; J1980; J1885; J2405; J7030

== ENCOUNTER 2018-12-13 21:00 | Emergency (ER) | payer SELFPAY ==
[2018-12-13] MEDS: KETOROLAC 30 MG/ML VIAL IVP ONE (22:21)
[2018-12-13] MEDS: ONDANSETRON HCL IV 4 MG/2 ML VIAL IV ONE (22:22)
[2018-12-13] MEDS: 0.9 % SODIUM CHLORIDE 1,000 ML BAG IV ONE (22:22)
[2018-12-13 22:27] LABS: BASO % 0.2 % (0-6); EOS % 1.7 % (0-6); HEMATOCRIT 42.1 % (35.0-47.0); HEMOGLOBIN 13.9 gm/dl (11.6-16.0); LYMPH % 5.2 % (16-45); MEAN CELL VOLUME 83.2 fl (81-97); MEAN CORPUSCULAR HEMOGLOBIN 27.5 pg (27-33); MEAN PLATELET VOLUME 10.7 fl (7.4-10.4); PLATELET COUNT 302 K/uL (130-400); RED BLOOD COUNT 5.06 M/uL (3.80-5.40); RED CELL DISTRIBUTION WIDTH 13.9 % (11.5-14.5); WHITE BLOOD COUNT W/O DIFF 11.2 K/uL (4.2-12.2)
[2018-12-13 22:28] LABS: URINE APPEARANCE CLEAR; URINE BILIRUBIN NEGATIVE (NEGATIVE); URINE BLOOD NEGATIVE (NEGATIVE); URINE COLOR YELLOW; URINE GLUCOSE (UA) NEGATIVE (NEGATIVE); URINE KETONE NEGATIVE (NEGATIVE); URINE LEUKOCYTE ESTERASE SMALL (NEGATIVE); URINE NITRITE NEGATIVE (NEGATIVE); URINE PROTEIN NEGATIVE (NEGATIVE); URINE UROBILINOGEN 0.2 E.U./dL (0.20 - 1.00)
[2018-12-13 22:38] LABS: BLOOD UREA NITROGEN 7 mg/dL (6-20); CREATININE 0.7 mg/dL (0.5-0.9); EST GLOMERULAR FILTRATION RATE > 60 mL/min
[2018-12-13 22:39] LABS: LIPASE 15 U/L (13-60); TOTAL PROTEIN 8.3 g/dL (6.6-8.7); URINE RBC 0 - 2 (NONE SEEN); URINE WBC 16 - 20 (0-2/hpf)
[2018-12-13 22:40] LABS: HCG,QUALITATIVE URINE NEGATIVE (NEGATIVE); URINE BACTERIA 3+; URINE MUCUS HEAVY
[2018-12-13 22:41] LABS: GLUCOSE,RANDOM 121 mg/dL (74-109)
[2018-12-13 22:44] LABS: ALB/GLOB RATIO 1.5 (1.1-1.8); ALKALINE PHOSPHATASE 71 U/L (35-104); ALT/SGPT 14 U/L (<33); AST/SGOT 16 U/L (10.0-35.0)
[2018-12-13] MEDS: LORAZEPAM 2 MG/ML VIAL IV ONE (23:44)
--- NOTE | 2018-12-14 01:01 | Emergency Department Record ---
History of Present Illness - General Chief complaint: Vomiting Stated complaint: VOMITING AND ABD PAIN Time Seen by Provider: 12/13/18 21:53 Source: Patient Mode of Arrival: Ambulatory Limitations: No limitations - History of Present Illness Initial comments: pt has intractable vomiting and abd pain. she has had the vomiting in the past from cyclical vomiting from marijuana. she states that she has not had the ap in the past though MD complaint: Abdominal pain, Nausea, Vomiting Onset/Timin -: Hour(s) Description of Vomiting: Food contents Location: RUQ Radiation: None Severity: Severe Severity scale (1-10): 10 Quality: Constant, Cramping, Dull Consistency: Getting worse Improves with: None Worsens with: Other Associated Symptoms: Nausea/vomiting - Related Data Previous Rx's Medication Instructions Recorded Cephalexin [Keflex] 500 mg PO TID #20 cap 12/14/18 Allergies Allergy/AdvReac Type Severity Reaction Status Date / Time No Known Drug Allergies Allergy Verified 09/12/18 01:53 Travel Screening - Travel/Exposure Within Last 30 Days Have you traveled within the last 30 days?: No - Travel/Exposure Within Last Year Have you traveled outside the [place] in the last year?: No - Additonal Travel Details Have you been exposed to anyone with a communicable illness?: No - Travel Symptoms Symptom Screening: None Review of Systems Reviewed: No additional complaints except as noted below Constitutional: Reports: As per HPI. Denies: Chills, Fever, Malaise, Night sweats, Weakness, Weight change Eyes: Reports: As per HPI. Denies: Eye discharge, Eye pain, Photophobia, Vision change ENT: Reports: As per HPI. Denies: Congestion, Dental pain, Ear pain, Epistaxis, Hearing loss, Throat pain Respiratory: Reports: As per HPI. Denies: Cough, Dyspnea, Hemoptysis, Stridor, Wheezes Cardiovascular: Reports: As per HPI. Denies: Arrhythmia, Chest pain, Dyspnea on exertion, Edema, Murmurs, Orthopnea, Palpitations, Paroxysmal nocturnal dyspnea, Rheumatic Fever, Syncope Endocrine: Reports: As per HPI. Denies: Fatigue, Heat or cold intolerance, Polydipsia, Polyuria Gastrointestinal: Reports: As per HPI, Abdominal pain, Nausea, Vomiting. Denies: Constipation, Diarrhea, Hematemesis, Hematochezia, Melena Genitourinary: Reports: As per HPI. Denies: Abnormal menses, Discharge, Dyspareunia, Dysuria, Frequency, Hematuria, Incontinence, Retention, Urgency Musculoskeletal: Reports: As per HPI. Denies: Arthralgia, Back pain, Gout, Joint swelling, Myalgia, Neck pain Skin: Reports: As per HPI. Denies: Bruising, Change in color, Change in hair/nails, Lesions, Pruritus, Rash Neurological: Reports: As per HPI. Denies: Abnormal gait, Confusion, Headache, Numbness, Paresthesias, Seizure, Tingling, Tremors, Vertigo, Weakness Psychiatric: Reports: As per HPI. Denies: Anxiety, Auditory hallucinations, Depression, Homicidal thoughts, Suicidal thoughts, Visual hallucinations Hematological/Lymphatic: Reports: As per HPI. Denies: Anemia, Blood Clots, Easy bleeding, Easy bruising, Swollen glands Past Medical History - SOCIAL HISTORY Smoking Status: Never smoker Alcohol Use: None Drug Use: Heavy Drug Use Detail:: Marijuana - RESPIRATORY Hx Respiratory Disorders: Yes Hx Asthma: Yes - CARDIOVASCULAR Hx Cardio Disorders: No - NEURO Hx Neuro Disorders: No - GI Hx GI Disorders: Yes Hx Abdominal Pain: Yes - Hx Genitourinary Disorders: Yes Hx Kidney Stones: Yes (02/15) - ENDOCRINE Hx Endocrine Disorders: No Hx Diabetes: No Hx Thyroid Disease: No - MUSCULOSKELETAL Hx Musculoskeletal Disorders: No - PSYCH Hx Psych Problems: Yes Hx Anxiety: Yes Hx Depression: Yes - HEMATOLOGY/ONCOLOGY Hx Hematology/Oncology Disorders: No Family Medical History Any Significant Family History?: No Hx Cancer: Mother *Cancer Comment: M-Breast Physical Exam - General General Appearance: Alert, Oriented x3, Cooperative, Mild distress - Head Head exam: Normal inspection - Eye Eye exam: Normal appearance, PERRL, EOMI Pupils: Normal accommodation - ENT ENT exam: Normal exam, Mucous membranes moist, Normal external ear exam, Normal orophraynx Ear exam: Normal external inspection. negative: External canal tenderness Nasal Exam: Normal inspection. negative: Discharge, Sinus tenderness Mouth exam: Normal external inspection, Tongue normal Teeth exam: Normal inspection. negative: Dental caries Throat exam: Normal inspection. negative: Tonsillar erythema, Tonsillar exudate - Neck Neck exam: Normal inspection, Full ROM. negative: Tenderness - Respiratory Respiratory exam: Normal lung sounds bilaterally. negative: Respiratory distress - Cardiovascular Cardiovascular Exam: Regular rate, Normal rhythm, Normal heart sounds - GI/Abdominal GI/Abdominal exam: Soft, Normal bowel sounds, Tenderness - Rectal Rectal exam: Deferred - exam: Deferred - Extremities Extremities exam: Normal inspection, Full ROM, Normal capillary refill. negative: Tenderness - Back Back exam: Reports: Normal inspection, Full ROM. Denies: Muscle spasm, Rash noted, Tenderness - Neurological Neurological exam: Alert, CN II-XII intact, Normal gait, Oriented X3 - Psychiatric Psychiatric exam: Normal affect, Normal mood - Skin Skin exam: Dry, Intact, Normal color, Warm Course Vital Signs 12/13/18 12/13/18 21:10 23:22 Temperature 98.4 F 97.8 F Pulse Rate 79 Pulse Rate [ 79 Left] Respiratory 22 19 Rate Blood Pressure 135/98 Blood Pressure 101/53 [Left Arm] Pulse Ox 98 98 - Reevaluation(s) Reevaluation #1: 12/14/18 01:[address] is neg Medical Decision Making - Lab Data Result diagrams: 12/13/18 Unknown 12/13/18 Unknown Lab Results 12/13/18 12/13/18 12/13/18 Range/Units Unknown Unknown Unknown WBC 11.2 (4.2-12.2) K/uL RBC 5.06 (3.80-5.40) M/uL Hgb 13.9 (11.6-16.0) gm/dl Hct 42.1 (35.0-47.0) % MCV 83.2 (81-97) fl MCH 27.5 (27-33) pg MCHC 33.0 (32-36) g/dl RDW 13.9 (11.5-14.5) % Plt Count 302 (130-400) K/uL MPV 10.7 H (7.4-10.4) fl Neutrophils % 87.0 H (47-80) % Band Neutrophils % 2.0 (0-5) % Lymphocytes % 5.2 L (16-45) % Monocytes % 5.0 (0-9) % Eosinophils % 1.7 (0-6) % Basophils % 0.2 (0-6) % Absolute Neutrophils Not Reportable Lymphocytes 5.0 L (16-45) % Monocytes 4.0 (0-9) % Eosinophil Count 2.0 (0-6) % D-Dimer (0-0.59) mg/L FEU Sodium 141 (136-145) mmol/L Potassium 3.5 (3.4-4.5) mmol/L Chloride 104 (98-107) mmol/L Carbon Dioxide 23.0 (22-29) mmol/L Anion Gap 14.0 (7-16) BUN 7 (6-20) mg/dL Creatinine 0.7 (0.5-0.9) mg/dL Estimated GFR > 60 mL/min Random Glucose 121 H (74-109) mg/dL Calcium 9.5 (8.6-10.0) mg/dL Total Bilirubin 0.80 (0.2-1.0) mg/dL AST 16 (10.0-35.0) U/L ALT 14 (<33) U/L Alkaline Phosphatase 71 (35-104) U/L Total Protein 8.3 (6.6-8.7) g/dL Albumin 5.0 (4.0-5.0) g/dL Globulin 3.3 (1.4-4.8) gm/dL Albumin/Globulin Ratio 1.5 (1.1-1.8) Lipase 15 (13-60) U/L Urine Color Yellow Urine Appearance Clear Urine pH 6.5 (5.0-8.0) Ur Specific [place] 1.020 (1.002-1.030) Urine Protein Negative (NEGATIVE) Urine Glucose (UA) Negative (NEGATIVE) Urine Ketones Negative (NEGATIVE) Urine Blood Negative (NEGATIVE) Urine Nitrite Negative (NEGATIVE) Urine Bilirubin Negative (NEGATIVE) Urine Urobilinogen 0.2 (0.20 - 1.00) E.U./dL Ur Leukocyte Esterase Small H (NEGATIVE) Urine RBC 0 - 2 (NONE SEEN) Urine WBC 16 - 20 (0-2/hpf) Ur Epithelial Cells 3 - 6 (FEW) Urine Bacteria 3+ Urine Mucus Heavy Urine HCG, Qual Negative (NEGATIVE) 12/13/18 Range/Units Unknown WBC (4.2-12.2) K/uL RBC (3.80-5.40) M/uL Hgb (11.6-16.0) gm/dl Hct (35.0-47.0) % MCV (81-97) fl MCH (27-33) pg MCHC (32-36) g/dl RDW (11.5-14.5) % Plt Count (130-400) K/uL MPV (7.4-10.4) fl Neutrophils % (47-80) % Band Neutrophils % (0-5) % Lymphocytes % (16-45) % Monocytes % (0-9) % Eosinophils % (0-6) % Basophils % (0-6) % Absolute Neutrophils Lymphocytes (16-45) % Monocytes (0-9) % Eosinophil Count (0-6) % D-Dimer 0.30 (0-0.59) mg/L FEU Sodium (136-145) mmol/L Potassium (3.4-4.5) mmol/L Chloride (98-107) mmol/L Carbon Dioxide (22-29) mmol/L Anion Gap (7-16) BUN (6-20) mg/dL Creatinine (0.5-0.9) mg/dL Estimated GFR mL/min Random Glucose (74-109) mg/dL Calcium (8.6-10.0) mg/dL Total Bilirubin (0.2-1.0) mg/dL AST (10.0-35.0) U/L ALT (<33) U/L Alkaline Phosphatase (35-104) U/L Total Protein (6.6-8.7) g/dL Albumin (4.0-5.0) g/dL Globulin (1.4-4.8) gm/dL Albumin/Globulin Ratio (1.1-1.8) Lipase (13-60) U/L Urine Color Urine Appearance Urine pH (5.0-8.0) Ur Specific [place] (1.002-1.030) Urine Protein (NEGATIVE) Urine Glucose (UA) (NEGATIVE) Urine Ketones (NEGATIVE) Urine Blood (NEGATIVE) Urine Nitrite (NEGATIVE) Urine Bilirubin (NEGATIVE) Urine Urobilinogen (0.20 - 1.00) E.U./dL Ur Leukocyte Esterase (NEGATIVE) Urine RBC (NONE SEEN) Urine WBC (0-2/hpf) Ur Epithelial Cells (FEW) Urine Bacteria Urine Mucus Urine HCG, Qual (NEGATIVE) Disposition Disposition: Discharge Clinical Impression: Cyclical vomiting Qualifiers: Vomiting Intractability: intractable Nausea presence: with nausea Qualified Code(s): G43.A1 - Cyclical vomiting, intractable UTI (urinary tract infection) Qualifiers: Urinary tract infection type: acute cystitis Hematuria presence: without hematuria Qualified Code(s): N30.00 - Acute cystitis without hematuria Disposition: Home, Self-Care Condition: (1) Good Instructions: Acute Nausea and Vomiting (ED), Urinary Tract Infection in Women (ED) Additional Instructions: follow up with family doctor. return sooner if worse. decrease marijuana Prescriptions: Cephalexin [Keflex] 500 mg PO TID #20 cap Quality - Quality Measures Quality Measures: N/A - Blood Pressure Screening Does Patient Have Any of the Following: No Blood Pressure Classification: Hypertensive Reading Systolic Measurement: 135 Diastolic Measurement: 98 Screening for High Blood Pressure: < Pre-Hypertensive BP, F/U Documented > [G8 950] Pre-Hypertensive Follow-up Interventions: Follow-up with rescreen every year.
[2018-12-14] MEDS: CEPHALEXIN 500 MG CAPSULE PO STA (01:09)
--- NOTE | 2018-12-14 21:16 | CT SCAN REPORT ---
EXAM: CT SCAN ABDOMEN/PELVIS W CONTRAST HISTORY: RIGHT UPPER QUADRANT PAIN. TECHNIQUE: Serial axial CT scan of the abdomen and pelvis was performed at 2.5 mm intervals from the dome of the diaphragm down to the pubic symphysis following the intravenous administration of 70 mL of Omnipaque-300. COMPARISON: Comparison CT scan of the abdomen and pelvis dated 05/13/2017 is provided. FINDINGS: Lung windows of the lung bases demonstrate a 5 mm nonspecific nodule within the medial segment of the right middle lobe. There is a 4.2 mm nodule within the left lingular lobe. There is a 5.4 mm nonspecific nodule within the left posterior lower lobe. These findings are unchanged with respect to the prior CT scan. These findings are likely benign. The visualized heart size and contour is within normal limits. The liver demonstrates a 5.6 mm hypodensity, which is too small to characterize further. This is located within the left hepatic lobe and appears slightly increased in size with respect to the prior CT scan. This finding likely represents a small cyst. No other hepatic lesions are identified. The size, contour, and attenuation of the liver is within normal limits. The spleen, pancreas, adrenal glands are unremarkable. The gallbladder is not clearly identified. There is no CT evidence of hydronephrosis or hydroureter. No renal or ureteral calculi are identified. The contour, caliber, and flow within the abdominal aorta is within normal limits. There is no CT evidence of retroperitoneal, pelvic, or inguinal lymphadenopathy. The bowel gas pattern is nonspecific and nonobstructive. There is no CT evidence of free intraperitoneal air. The urinary bladder is decompressed. Of note is the patient has a bicornuate uterus. Several follicles are identified within both ovaries. There is a small amount of free fluid within the posterior cul-de-sac. These findings suggest hemorrhagic ovarian cyst, similar to the previous CT scan. Bone windows demonstrate no CT evidence of an acute fracture or dislocation of the visualized osseous structures. IMPRESSION: 1. A SMALL AMOUNT OF FREE FLUID IS NOTED WITHIN THE POSTERIOR CUL-DE-SAC, WHICH LIKELY REPRESENTS A HEMORRHAGIC OVARIAN CYST. IF THERE IS FURTHER CLINICAL CONCERN, THEN AN ULTRASOUND EXAMINATION OF THE PELVIS CAN BE OBTAINED FOR FURTHER EVALUATION. 2. FINDINGS SUGGESTIVE OF A BICORNUATE UTERUS. 3. STABLE CT APPEARANCE OF THE BILATERAL LOWER LOBE LUNG NODULES WITH RESPECT TO THE PRIOR CT SCAN. JOB NUMBER: [id number] [facility]
== END 2018-12-14 01:20 | disposition home or self-care (01) ==
LOC: ER 21:00
DX: G43.A1 Cyclical vomiting, in migraine, intractable (principal); N30.00 Acute cystitis without hematuria; R10.11 Right upper quadrant pain
CPT/HCPCS: 74177; 80053; 81001; 81025; 83690; 85027; 85379; 96361; 96374; 96375; 99284; J1885; J2405; J7030

== ENCOUNTER 2019-03-31 06:08 | Emergency (ER) | payer SELFPAY ==
[2019-03-31] MEDS ORDERED: 0.9 % SODIUM CHLORIDE 1,000 ML BAG IV ONE (06:33)
[2019-03-31] MEDS ORDERED: ONDANSETRON HCL IV 4 MG/2 ML VIAL IV ONE (06:33)
[2019-03-31] MEDS ORDERED: HYOSCYAMINE SULFATE ODT 0.125 MG TAB.SUBL SL ONE (06:34)
[2019-03-31 06:40] LABS: URINE APPEARANCE SL CLOUDY; URINE BILIRUBIN MODERATE (NEGATIVE); URINE BLOOD TRACE-I (NEGATIVE); URINE COLOR YELLOW; URINE GLUCOSE (UA) NEGATIVE (NEGATIVE); URINE LEUKOCYTE ESTERASE MODERATE (NEGATIVE); URINE NITRITE NEGATIVE (NEGATIVE); URINE PROTEIN TRACE (NEGATIVE); URINE UROBILINOGEN 0.2 E.U./dL (0.20 - 1.00)
--- NOTE | 2019-03-31 06:41 | Emergency Department Record ---
History of Present Illness - General Chief Complaint: Abdominal Pain Stated Complaint: DEHYDRATED Time Seen by Provider: 03/31/19 06:17 Source: Patient Mode of Arrival: Ambulatory - History of Present Illness Initial Comments: The patient states that she has not been eating or drinking all day yesterday because she would vomit after drinking clear liquids. She states she was seen yesterday at [facility] and given hydroxyzine 25 mg for anxiety. She states she had 3 hydroxyzine yesterday but it didn't help her anxiety. She also was told to see mental health, but hasn't gone. She was planning on going there today, but this dehydration happened. She complains that her stomach is "cramping" and that her mouth is extremely dry. She denies fevers, diarrhea, cough, URI symptoms sore throat, rashes. Complaint: Other ("dehydration") -: Hour(s) Location: Periumbilical Radiation: None Severity: Severe Severity scale (1-10): 9 Quality: Aching Consistency: Constant Improves With: Nothing Worsens With: Nothing Context: Foreign travel - Related Data LMP (females 10-50): 3 weeks ago Patient : No Home Medications Medication Instructions Recorded Confirmed Last Taken Hydroxyzine HCl [Atarax] 10 mg PO DAILY PRN 03/31/19 03/31/19 03/30/19 Previous Rx's Medication Instructions Recorded Nitrofurantoin [place] [Macrobid] 100 mg PO BID #20 capsule 03/31/19 Allergies Allergy/AdvReac Type Severity Reaction Status Date / Time No Known Drug Allergies Allergy Verified 09/12/18 01:53 Travel Screening - Travel/Exposure Within Last 30 Days Have you traveled within the last 30 days?: No Review of Systems Reviewed: No additional complaints except as noted below Constitutional: Reports: As per HPI. Denies: Chills, Fever, Malaise, Night sweats, Weakness, Weight change Eyes: Reports: As per HPI. Denies: Eye discharge, Eye pain, Photophobia, Vision change ENT: Reports: As per HPI. Denies: Congestion, Dental pain, Ear pain, Epistaxis, Hearing loss, Throat pain Respiratory: Reports: As per HPI. Denies: Cough, Dyspnea, Hemoptysis, Stridor, Wheezes Cardiovascular: Reports: As per HPI. Denies: Arrhythmia, Chest pain, Dyspnea on exertion, Edema, Murmurs, Orthopnea, Palpitations, Paroxysmal nocturnal dyspnea, Rheumatic Fever, Syncope Endocrine: Reports: As per HPI. Denies: Fatigue, Heat or cold intolerance, Polydipsia, Polyuria Gastrointestinal: Reports: As per HPI. Denies: Abdominal pain, Constipation, Diarrhea, Hematemesis, Hematochezia, Melena, Nausea, Vomiting Genitourinary: Reports: As per HPI. Denies: Abnormal menses, Discharge, Dyspareunia, Dysuria, Frequency, Hematuria, Incontinence, Retention, Urgency Musculoskeletal: Reports: As per HPI. Denies: Arthralgia, Back pain, Gout, Joint swelling, Myalgia, Neck pain Skin: Reports: As per HPI. Denies: Bruising, Change in color, Change in hair/nails, Lesions, Pruritus, Rash Neurological: Reports: As per HPI. Denies: Abnormal gait, Confusion, Headache, Numbness, Paresthesias, Seizure, Tingling, Tremors, Vertigo, Weakness Psychiatric: Reports: As per HPI. Denies: Anxiety, Auditory hallucinations, Depression, Homicidal thoughts, Suicidal thoughts, Visual hallucinations Hematological/Lymphatic: Reports: As per HPI. Denies: Anemia, Blood Clots, Easy bleeding, Easy bruising, Swollen glands Past Medical History - SOCIAL HISTORY Smoking Status: Never smoker Alcohol Use: None Drug Use: Heavy Drug Use Detail:: Marijuana - RESPIRATORY Hx Respiratory Disorders: Yes Hx Asthma: Yes - CARDIOVASCULAR Hx Cardio Disorders: No - NEURO Hx Neuro Disorders: No - GI Hx GI Disorders: Yes Hx Abdominal Pain: Yes - Hx Genitourinary Disorders: Yes Hx Kidney Stones: Yes (02/15) - ENDOCRINE Hx Endocrine Disorders: No Hx Diabetes: No Hx Thyroid Disease: No - MUSCULOSKELETAL Hx Musculoskeletal Disorders: No - PSYCH Hx Psych Problems: Yes Hx Anxiety: Yes Hx Depression: Yes - HEMATOLOGY/ONCOLOGY Hx Hematology/Oncology Disorders: No Family Medical History Any Significant Family History?: Yes Hx Cancer: Mother *Cancer Comment: M-Breast Physical Exam - General General Appearance: Alert, Oriented x3, Cooperative, Mild distress (curled up sitting in position with a look of distress on her face) - Head Head exam: Normal inspection - Eye Eye exam: Normal appearance, PERRL Pupils: Normal accommodation - ENT ENT exam: Normal exam, Mucous membranes dry, Normal external ear exam, Normal orophraynx, TM's normal bilaterally Ear exam: Normal external inspection. negative: External canal tenderness Nasal Exam: Normal inspection. negative: Discharge, Sinus tenderness Mouth exam: Normal external inspection, Tongue normal Teeth exam: Normal inspection. negative: Dental caries Throat exam: Normal inspection. negative: Tonsillar erythema, Tonsillar exudate - Neck Neck exam: Normal inspection, Full ROM. negative: Lymphadenopathy, Meningismus, Tenderness - Respiratory Respiratory exam: Normal lung sounds bilaterally. negative: Accessory muscle use, Chest wall tenderness, Respiratory distress - Cardiovascular Cardiovascular Exam: Regular rate, Normal rhythm, Normal heart sounds - GI/Abdominal GI/Abdominal exam: Soft, Normal bowel sounds. negative: Tenderness - Rectal Rectal exam: Deferred - exam: Deferred - Extremities Extremities exam: Normal inspection, Full ROM, Normal capillary refill. negative: Calf tenderness, Pedal edema, Tenderness - Back Back exam: Reports: Normal inspection, Full ROM. Denies: CVA tenderness (R), CVA tenderness (L), Muscle spasm, Rash noted, Tenderness - Neurological Neurological exam: Alert, CN II-XII intact, Normal gait, Oriented X3, Reflexes normal. negative: Altered, Motor sensory deficit - Psychiatric Psychiatric exam: Normal affect, Normal mood - Skin Skin exam: Dry, Intact, Normal color, Warm Course Vital Signs 03/31/19 06:13 Temperature 97.5 F L Pulse Rate [ 72 Left] Respiratory 16 Rate Blood Pressure 121/75 [Left Arm] Pulse Ox 98 - Reevaluation(s) Reevaluation #1: 03/31/19 06:56 care turned over to Dr. Mccarthy at 0700 shift change due to pending studies. Medical Decision Making - Lab Data Result diagrams: 03/31/19 06:35 03/31/19 06:35 Disposition Clinical Impression: Vomiting, Diarrhea, Anxiety, UTI (urinary tract infection) Disposition: Home, Self-Care Condition: (1) Good Instructions: Urinary Tract Infection in Women (ED), Anxiety (ED) Additional Instructions: follow up with [facility] as planned stop using marijuana take macrobid twice a day Prescriptions: Nitrofurantoin [place] [Macrobid] 100 mg PO BID #20 capsule Forms: Patient Portal Access Quality - Quality Measures Quality Measures: N/A - Blood Pressure Screening Does Patient Have Any of the Following: No Blood Pressure Classification: Pre-Hypertensive BP Reading Systolic Measurement: 121 Diastolic Measurement: 65 Screening for High Blood Pressure: < Normal BP, F/U Not Required > [G7353]
[2019-03-31 06:44] LABS: AMPHETAMINE SCREEN URINE NOT DETECTED; BARBITURATE SCREEN URINE NOT DETECTED; BENZODIAZEPINE SCREEN URINE DETECTED; COCAINE SCREEN URINE NOT DETECTED; METHADONE SCREEN URINE NOT DETECTED; METHAMPHETAMINE SCREEN NOT DETECTED; OPIATE SCREEN URINE NOT DETECTED; OXYCODONE SCREEN URINE NOT DETECTED; PHENCYCLIDINE SCREEN URINE NOT DETECTED; PROPOXYPHENE SCREEN URINE NOT DETECTED; THC SCREEN URINE DETECTED; TRICYCLIC ANTIDEPRESSANT SCRN NOT DETECTED
[2019-03-31 06:49] LABS: ABSOLUTE NEUTROPHIL COUNT 6.44; BASO % 0.1 % (0-6); EOS % 5.1 % (0-6); HEMATOCRIT 39.7 % (35.0-47.0); LYMPH % 12.5 % (16-45); MEAN CELL VOLUME 84.1 fl (81-97); MEAN CORPUSCULAR HEMOGLOBIN 27.5 pg (27-33); MEAN CORPUSCULAR HGB CONC 32.7 g/dl (32-36); MEAN PLATELET VOLUME 10.2 fl (7.4-10.4); MONO % 6.3 % (0-9); PLATELET COUNT 325 K/uL (130-400); RED BLOOD COUNT 4.72 M/uL (3.80-5.40); RED CELL DISTRIBUTION WIDTH 13.9 % (11.5-14.5); WHITE BLOOD COUNT W/O DIFF 8.5 K/uL (4.2-12.2)
[2019-03-31 06:53] LABS: URINE KETONE 80 mg/dL (NEGATIVE)
[2019-03-31 06:55] LABS: HCG,QUALITATIVE URINE NEGATIVE (NEGATIVE); URINE BACTERIA 1+; URINE EPITHELIAL CELLS 0 - 2 (FEW); URINE RBC 0 - 2 (NONE SEEN)
[2019-03-31 07:02] LABS: BLOOD UREA NITROGEN 14 mg/dL (6-20); CREATININE 0.8 mg/dL (0.5-0.9); EST GLOMERULAR FILTRATION RATE > 60 mL/min
[2019-03-31 07:03] LABS: LIPASE 28 U/L (13-60); TOTAL PROTEIN 7.8 g/dL (6.6-8.7)
[2019-03-31 07:05] LABS: GLUCOSE,RANDOM 88 mg/dL (74-109)
--- NOTE | 2019-03-31 07:05 | Emergency Department Record ---
History of Present Illness - General Chief Complaint: Abdominal Pain Stated Complaint: DEHYDRATED Time Seen by Provider: 03/31/19 06:17 Source: Patient Mode of Arrival: Ambulatory - History of Present Illness MD Complaint: Other ("dehydration") -: Hour(s) Location: Periumbilical Radiation: None Severity: Severe Severity scale (1-10): 9 Quality: Aching Consistency: Constant Improves With: Nothing Worsens With: Nothing Context: Foreign travel - Related Data LMP (females 10-50): 3 weeks ago Patient : No Home Medications Medication Instructions Recorded Confirmed Last Taken Hydroxyzine HCl [Atarax] 10 mg PO DAILY PRN 03/31/19 03/31/19 03/30/19 Previous Rx's Medication Instructions Recorded Nitrofurantoin [place] [Macrobid] 100 mg PO BID #20 capsule 03/31/19 Allergies Allergy/AdvReac Type Severity Reaction Status Date / Time No Known Drug Allergies Allergy Verified 09/12/18 01:53 Travel Screening - Travel/Exposure Within Last 30 Days Have you traveled within the last 30 days?: No Review of Systems Constitutional: Reports: As per HPI. Denies: Chills, Fever, Malaise, Night sweats, Weakness, Weight change Eyes: Reports: As per HPI. Denies: Eye discharge, Eye pain, Photophobia, Vision change ENT: Reports: As per HPI. Denies: Congestion, Dental pain, Ear pain, Epistaxis, Hearing loss, Throat pain Respiratory: Reports: As per HPI. Denies: Cough, Dyspnea, Hemoptysis, Stridor, Wheezes Cardiovascular: Reports: As per HPI. Denies: Arrhythmia, Chest pain, Dyspnea on exertion, Edema, Murmurs, Orthopnea, Palpitations, Paroxysmal nocturnal dyspnea, Rheumatic Fever, Syncope Endocrine: Reports: As per HPI. Denies: Fatigue, Heat or cold intolerance, Polydipsia, Polyuria Gastrointestinal: Reports: As per HPI. Denies: Abdominal pain, Constipation, Diarrhea, Hematemesis, Hematochezia, Melena, Nausea, Vomiting Genitourinary: Reports: As per HPI. Denies: Abnormal menses, Discharge, Dyspareunia, Dysuria, Frequency, Hematuria, Incontinence, Retention, Urgency Musculoskeletal: Reports: As per HPI. Denies: Arthralgia, Back pain, Gout, Joint swelling, Myalgia, Neck pain Skin: Reports: As per HPI. Denies: Bruising, Change in color, Change in hair/nails, Lesions, Pruritus, Rash Neurological: Reports: As per HPI. Denies: Abnormal gait, Confusion, Headache, Numbness, Paresthesias, Seizure, Tingling, Tremors, Vertigo, Weakness Psychiatric: Reports: As per HPI. Denies: Anxiety, Auditory hallucinations, Depression, Homicidal thoughts, Suicidal thoughts, Visual hallucinations Hematological/Lymphatic: Reports: As per HPI. Denies: Anemia, Blood Clots, Easy bleeding, Easy bruising, Swollen glands Past Medical History - SOCIAL HISTORY Smoking Status: Never smoker Alcohol Use: None Drug Use: Heavy Drug Use Detail:: Marijuana - RESPIRATORY Hx Respiratory Disorders: Yes Hx Asthma: Yes - CARDIOVASCULAR Hx Cardio Disorders: No - NEURO Hx Neuro Disorders: No - GI Hx GI Disorders: Yes Hx Abdominal Pain: Yes - Hx Genitourinary Disorders: Yes Hx Kidney Stones: Yes (02/15) - ENDOCRINE Hx Endocrine Disorders: No Hx Diabetes: No Hx Thyroid Disease: No - MUSCULOSKELETAL Hx Musculoskeletal Disorders: No - PSYCH Hx Psych Problems: Yes Hx Anxiety: Yes Hx Depression: Yes - HEMATOLOGY/ONCOLOGY Hx Hematology/Oncology Disorders: No Family Medical History Any Significant Family History?: Yes Hx Cancer: Mother *Cancer Comment: M-Breast Course Vital Signs 03/31/19 06:13 Temperature 97.5 F L Pulse Rate [ 72 Left] Respiratory 16 Rate Blood Pressure 121/75 [Left Arm] Pulse Ox 98 - Reevaluation(s) Reevaluation #1: took over from Dr New at 7am and she states the vomiting is better and she is still anxious and she states she took vistaril last night and she is planning to go to [facility] today to get some counciling as advised by Guera's ED visit yesterday for anxiety. Abd soft to palpate and she said she has vomited three times and three diarrhea episodes and everything started about 4 hours ago. 03/31/19 07:18 Reevaluation #2: feeling better and will discharge and start macrobid for possible UTI and advised she continue to use hydroxine prescribed by Guera recommended she stop marijuana 03/31/19 07:28 Medical Decision Making - Data Complexity MDM Data: Labs Ordered and/or Reviewed (UA 3-5 wbc's and one plus bacteria) - Lab Data Result diagrams: 03/31/19 06:35 03/31/19 06:35 Lab Results 03/31/19 03/31/19 03/31/19 Range/Units 06:35 06:35 Unknown WBC 8.5 (4.2-12.2) K/uL RBC 4.72 (3.80-5.40) M/uL Hgb 13.0 (11.6-16.0) gm/dl Hct 39.7 (35.0-47.0) % MCV 84.1 (81-97) fl MCH 27.5 (27-33) pg MCHC 32.7 (32-36) g/dl RDW 13.9 (11.5-14.5) % Plt Count 325 (130-400) K/uL MPV 10.2 (7.4-10.4) fl Gran % 76.0 (47-80) % Lymphocytes % 12.5 L (16-45) % Monocytes % 6.3 (0-9) % Eosinophils % 5.1 (0-6) % Basophils % 0.1 (0-6) % Absolute Neutrophils 6.44 Sodium 140 (136-145) mmol/L Potassium 3.5 (3.4-4.5) mmol/L Chloride 104 (98-107) mmol/L Carbon Dioxide 19.0 L (22-29) mmol/L Anion Gap 17.0 H (7-16) BUN 14 (6-20) mg/dL Creatinine 0.8 (0.5-0.9) mg/dL Estimated GFR > 60 mL/min Calcium 9.1 (8.6-10.0) mg/dL Total Bilirubin 0.80 (0.2-1.0) mg/dL Total Protein 7.8 (6.6-8.7) g/dL Lipase 28 (13-60) U/L Urine Color Yellow Urine Appearance Sl cloudy Urine pH 5.5 (5.0-8.0) Ur Specific Roper >= 1.030 (1.002-1.030) Urine Protein Trace H (NEGATIVE) Urine Glucose (UA) Negative (NEGATIVE) Urine Ketones 80 mg/dl H (NEGATIVE) Urine Blood Trace-i (NEGATIVE) Urine Nitrite Negative (NEGATIVE) Urine Bilirubin Moderate H (NEGATIVE) Urine Urobilinogen 0.2 (0.20 - 1.00) E.U./dL Ur Leukocyte Esterase Moderate H (NEGATIVE) Urine RBC 0 - 2 (NONE SEEN) Urine WBC 3 - 5 (0-2/hpf) Ur Epithelial Cells 0 - 2 (FEW) Urine Bacteria 1+ Urine HCG, Qual Negative (NEGATIVE) Urine Opiates Screen Ur Oxycodone Screen Urine Methadone Screen Ur Propoxyphene Screen Ur Barbituates Screen Ur Tricyclics Screen Ur Phencyclidine Scrn Ur Amphetamine Screen U Methamphetamines Scrn U Benzodiazepines Scrn Urine Cocaine Screen Urine Cannabis Screen 03/31/19 Range/Units Unknown WBC (4.2-12.2) K/uL RBC (3.80-5.40) M/uL Hgb (11.6-16.0) gm/dl Hct (35.0-47.0) % MCV (81-97) fl MCH (27-33) pg MCHC (32-36) g/dl RDW (11.5-14.5) % Plt Count (130-400) K/uL MPV (7.4-10.4) fl Gran % (47-80) % Lymphocytes % (16-45) % Monocytes % (0-9) % Eosinophils % (0-6) % Basophils % (0-6) % Absolute Neutrophils Sodium (136-145) mmol/L Potassium (3.4-4.5) mmol/L Chloride (98-107) mmol/L Carbon Dioxide (22-29) mmol/L Anion Gap (7-16) BUN (6-20) mg/dL Creatinine (0.5-0.9) mg/dL Estimated GFR mL/min Calcium (8.6-10.0) mg/dL Total Bilirubin (0.2-1.0) mg/dL Total Protein (6.6-8.7) g/dL Lipase (13-60) U/L Urine Color Urine Appearance Urine pH (5.0-8.0) Ur Specific Roper (1.002-1.030) Urine Protein (NEGATIVE) Urine Glucose (UA) (NEGATIVE) Urine Ketones (NEGATIVE) Urine Blood (NEGATIVE) Urine Nitrite (NEGATIVE) Urine Bilirubin (NEGATIVE) Urine Urobilinogen (0.20 - 1.00) E.U./dL Ur Leukocyte Esterase (NEGATIVE) Urine RBC (NONE SEEN) Urine WBC (0-2/hpf) Ur Epithelial Cells (FEW) Urine Bacteria Urine HCG, Qual (NEGATIVE) Urine Opiates Screen Not detected Ur Oxycodone Screen Not detected Urine Methadone Screen Not detected Ur Propoxyphene Screen Not detected Ur Barbituates Screen Not detected Ur Tricyclics Screen Not detected Ur Phencyclidine Scrn Not detected Ur Amphetamine Screen Not detected U Methamphetamines Scrn Not detected U Benzodiazepines Scrn Detected Urine Cocaine Screen Not detected Urine Cannabis Screen Detected Disposition Clinical Impression: Anxiety Vomiting Qualifiers: Vomiting type: unspecified Vomiting Intractability: non-intractable Nausea presence: with nausea Qualified Code(s): R11.2 - Nausea with vomiting, unspecified Diarrhea Qualifiers: Diarrhea type: unspecified type Qualified Code(s): R19.7 - Diarrhea, unspecified UTI (urinary tract infection) Qualifiers: Urinary tract infection type: acute cystitis Hematuria presence: without hematuria Qualified Code(s): N30.00 - Acute cystitis without hematuria Disposition: Home, Self-Care Condition: (1) Good Instructions: Anxiety (ED), Urinary Tract Infection in Women (ED) Additional Instructions: follow up with [facility] as planned stop using marijuana take macrobid twice a day Prescriptions: Nitrofurantoin [place] [Macrobid] 100 mg PO BID #20 capsule Forms: Patient Portal Access Time of Disposition: 07:28 Quality - Quality Measures Quality Measures: N/A - Blood Pressure Screening Does Patient Have Any of the Following: No Blood Pressure Classification: Pre-Hypertensive BP Reading Systolic Measurement: 121 Diastolic Measurement: 65 Screening for High Blood Pressure: < Pre-Hypertensive BP, F/U Documented > [G8950] Pre-Hypertensive Follow-up Interventions: Referral to alternative/primary care provider.
[2019-03-31 07:07] LABS: ALT/SGPT 10 U/L (<33); AST/SGOT 14 U/L (10.0-35.0)
[2019-03-31 07:08] LABS: ALB/GLOB RATIO 1.2 (1.1-1.8); ALBUMIN 4.3 g/dL (4.0-5.0); ALKALINE PHOSPHATASE 62 U/L (35-104)
[2019-03-31] MEDS ORDERED: LORAZEPAM 2 MG/ML VIAL IV ONE (07:11)
[2019-03-31] MEDS ORDERED: NITROFURANTOIN MONO 100 MG CAPSULE PO ONE (07:36)
== END 2019-03-31 08:02 | disposition home or self-care (01) ==
LOC: ER 06:08
DX: N30.00 Acute cystitis without hematuria (principal); R11.2 Nausea with vomiting, unspecified; R19.7 Diarrhea, unspecified; R10.33 Periumbilical pain; F41.9 Anxiety disorder, unspecified
CPT/HCPCS: 99284 ×2; 96374; 83690; 85025; 80053; 81001; 81025; 80305; J1980; J2405; J2060; J7030

== ENCOUNTER 2019-04-05 22:50 | Emergency (ER) | payer SELFPAY ==
[2019-04-05] MEDS ORDERED: HYDROXYZINE PAMOATE 25 MG CAPSULE PO ONE (23:11)
--- NOTE | 2019-04-05 23:35 | Emergency Department Record ---
Anxiety - General Chief Complaint: Panic attack Stated Complaint: PANIC ATTACK Time Seen by Provider: 04/05/19 23:10 Source: Patient, Family () Mode of Arrival: Ambulatory Limitations: No limitations - History of Present Illness Initial Comments: Pt to ED with for "anxiety attack" onset at 4PM tonight. Hx of similar. Not on meds on regular basis but has success with Vistaril orally. No depression or suicidal thoughts. Hx of anxiety but at times is unable to control symptoms. No CP or TESSIE. Not -: Hour(s) Symptoms: Dry mouth, Palpitations Place: Home Previous History of Same: Yes Severity: Moderate Quality: Constant Provoking factors: Emotional stress Improves With: Nothing Worsens With: Nothing Associated symptoms: Denies other symptoms, Palpitations, Shortness of breath - Related Data Home Medications: Previous Rx's Medication Instructions Recorded Nitrofurantoin [place] [Macrobid] 100 mg PO BID #20 capsule 03/31/19 Hydroxyzine Pamoate [Vistaril] 25 mg PO Q6H PRN 4 Days #12 capsule 04/05/19 Allergies/Adverse Reactions: Allergies Allergy/AdvReac Type Severity Reaction Status Date / Time No Known Drug Allergies Allergy Verified 09/12/18 01:53 Travel Screening - Travel/Exposure Within Last 30 Days Have you traveled within the last 30 days?: No - Travel Symptoms Symptom Screening: None Review of Systems Constitutional: Denies: Chills, Fever Eyes: Denies: Eye discharge, Photophobia ENT: Denies: Congestion Respiratory: Denies: Cough Cardiovascular: Denies: Arrhythmia, Chest pain Endocrine: Denies: Fatigue Gastrointestinal: Denies: Nausea, Vomiting Genitourinary: Denies: Abnormal menses Skin: Denies: Bruising Neurological: Denies: Headache, Tingling, Tremors Psychiatric: Reports: As per HPI, Anxiety. Denies: Suicidal thoughts Hematological/Lymphatic: Denies: Anemia Past Medical History - SOCIAL HISTORY Smoking Status: Never smoker Alcohol Use: None Drug Use: Heavy Drug Use Detail:: Marijuana - RESPIRATORY Hx Respiratory Disorders: Yes Hx Asthma: Yes - CARDIOVASCULAR Hx Cardio Disorders: No - NEURO Hx Neuro Disorders: No - GI Hx GI Disorders: Yes Hx Abdominal Pain: Yes - Hx Genitourinary Disorders: Yes Hx Kidney Stones: Yes (02/15) - ENDOCRINE Hx Endocrine Disorders: No Hx Diabetes: No Hx Thyroid Disease: No - MUSCULOSKELETAL Hx Musculoskeletal Disorders: No - PSYCH Hx Psych Problems: Yes Hx Anxiety: Yes Hx Depression: Yes - HEMATOLOGY/ONCOLOGY Hx Hematology/Oncology Disorders: No Family Medical History Any Significant Family History?: Yes Hx Cancer: Mother *Cancer Comment: M-Breast Physical Exam - General General Appearance: Alert, Oriented x3, Cooperative, Mild distress - Head Head exam: Atraumatic - Eye Eye exam: Normal appearance, PERRL - ENT ENT exam: Mucous membranes moist, Normal orophraynx Nasal Exam: Normal inspection Mouth exam: Normal external inspection - Neck Neck exam: Normal inspection. negative: Tenderness - Respiratory Respiratory exam: Normal lung sounds bilaterally. negative: Respiratory distress, Rhonchi - Cardiovascular Cardiovascular Exam: Regular rate, Normal rhythm. negative: Tachycardia - GI/Abdominal GI/Abdominal exam: Soft. negative: Guarding, Tenderness - Extremities Extremities exam: Normal inspection - Back Back exam: Reports: Normal inspection - Neurological Neurological exam: Alert, Normal gait, Oriented X3 - Psychiatric Psychiatric exam: Anxious, Normal affect. negative: Flat affect, Manic, Suicidal ideation - Skin Skin exam: Normal color. negative: Rash Course Vital Signs 04/05/19 22:55 Temperature 98.1 F Pulse Rate [ 63 Pulse Ox Probe] Respiratory 24 Rate Blood Pressure 118/84 [Left Arm] Pulse Ox 98 - Reevaluation(s) Reevaluation #1: 04/05/19 23:31 see and given po meds. Will monitor. Reevaluation #2: 04/06/19 00:29 given Ativan 0.5mg po with some improvement. Home with Disposition Disposition: Discharge Clinical Impression: Anxiety Disposition: Home, Self-Care Condition: (1) Good Instructions: Generalized Anxiety Disorder (ED) Additional Instructions: Follow with your doctor to discuss rescue meds for home. Return to the ED as needed. Prescriptions: Hydroxyzine Pamoate [Vistaril] 25 mg PO Q6H PRN 4 Days #12 capsule PRN Reason: Anxiety Forms: Patient Portal Access Time of Disposition: 00:29 Quality - Quality Measures Quality Measures: N/A - Blood Pressure Screening Does Patient Have Any of the Following: No Blood Pressure Classification: Normal BP Reading Systolic Measurement: 102 Diastolic Measurement: 59 Screening for High Blood Pressure: < Normal BP, F/U Not Required > [G8783]
[2019-04-06] MEDS ORDERED: LORAZEPAM 0.5 MG TABLET PO ONE ×2 (00:07→00:50)
== END 2019-04-06 01:05 | disposition home or self-care (01) ==
LOC: ER 22:50
DX: F41.0 Panic disorder [episodic paroxysmal anxiety] (principal); R06.02 Shortness of breath; R00.2 Palpitations
CPT/HCPCS: 99283

== ENCOUNTER 2019-04-16 05:19 | Emergency (ER) | payer SELFPAY ==
[2019-04-16] MEDS ORDERED: HYDROXYZINE PAMOATE 25 MG CAPSULE PO ONE (05:33)
--- NOTE | 2019-04-16 05:39 | Emergency Department Record ---
Anxiety - General Chief Complaint: Panic attack Stated Complaint: PANIC ATTACK Time Seen by Provider: 04/16/19 05:30 Source: Patient Mode of Arrival: Ambulatory Limitations: No limitations - History of Present Illness Initial Comments: 28 yo female presents to ED for evaluation of a "panic attack" that she may began vomiting. Patient reports that she awoke 1 hour ago with her symptoms. Patient reports that Vistaril has improved her symptoms previously, however she is out of her prescription. Patient was seen 11 days ago here in the ED with similar symptoms. MD Complaint: Anxiety Onset/Timin -: Hour(s) Place: Home Previous History of Same: Yes Severity: Moderate Quality: Worsening Provoking factors: None known Improves With: Nothing Worsens With: Nothing Associated symptoms: Nausea/vomiting - Related Data Home Medications: Previous Rx's Medication Instructions Recorded Hydroxyzine Pamoate [Vistaril] 25 mg PO Q6H PRN 4 Days #12 capsule 04/05/19 Allergies/Adverse Reactions: Allergies Allergy/AdvReac Type Severity Reaction Status Date / Time No Known Drug Allergies Allergy Verified 04/16/19 05:27 Travel Screening - Travel/Exposure Within Last 30 Days Have you traveled within the last 30 days?: No - Travel/Exposure Within Last Year Have you traveled outside the [place] in the last year?: No - Additonal Travel Details Have you been exposed to anyone with a communicable illness?: No - Travel Symptoms Symptom Screening: None Review of Systems Constitutional: Denies: Chills, Fever, Malaise, Night sweats Eyes: Denies: Eye discharge, Eye pain ENT: Denies: Congestion, Ear pain, Epistaxis Respiratory: Denies: Cough, Dyspnea Cardiovascular: Denies: Chest pain, Dyspnea on exertion Endocrine: Denies: Fatigue, Heat or cold intolerance Gastrointestinal: Reports: Nausea, Vomiting. Denies: Abdominal pain Genitourinary: Denies: Incontinence, Retention Musculoskeletal: Denies: Arthralgia, Back pain Skin: Denies: Bruising, Change in color Neurological: Denies: Abnormal gait, Confusion, Headache, Seizure Psychiatric: Reports: Anxiety Hematological/Lymphatic: Denies: Anemia, Blood Clots Past Medical History - SOCIAL HISTORY Smoking Status: Current some day smoker Alcohol Use: None Drug Use Detail:: Marijuana - RESPIRATORY Hx Respiratory Disorders: Yes Hx Asthma: Yes - CARDIOVASCULAR Hx Cardio Disorders: No - NEURO Hx Neuro Disorders: No - GI Hx GI Disorders: Yes Hx Abdominal Pain: Yes - Hx Genitourinary Disorders: Yes Hx Kidney Stones: Yes (02/15) - ENDOCRINE Hx Endocrine Disorders: No Hx Diabetes: No Hx Thyroid Disease: No - MUSCULOSKELETAL Hx Musculoskeletal Disorders: No - PSYCH Hx Psych Problems: Yes Hx Anxiety: Yes Hx Depression: Yes - HEMATOLOGY/ONCOLOGY Hx Hematology/Oncology Disorders: No Family Medical History Any Significant Family History?: Yes Hx Cancer: Mother *Cancer Comment: M-Breast Physical Exam - General General Appearance: Alert, Oriented x3, Cooperative, Mild distress, Anxious Limitations: No limitations - Head Head exam: Atraumatic, Normocephalic, Normal inspection Head exam detail: negative: Abrasion, Contusion, Melo's sign, General tenderness, Hematoma, Laceration - Eye Eye exam: Normal appearance. negative: Conjunctival injection, Periorbital swelling, Periorbital tenderness, Scleral icterus - ENT Ear exam: negative: Auricular hematoma, Auricular trauma Nasal Exam: negative: Active bleeding, Discharge, Dried blood, Foreign body Mouth exam: negative: Drooling, Laceration, Muffled voice, Tongue elevation - Neck Neck exam: Normal inspection. negative: Meningismus, Tenderness - Respiratory Respiratory exam: Normal lung sounds bilaterally. negative: Rales, Respiratory distress, Rhonchi, Stridor - Cardiovascular Cardiovascular Exam: Regular rate, Normal rhythm, Normal heart sounds - GI/Abdominal GI/Abdominal exam: Soft. negative: Rebound, Rigid, Tenderness - Rectal Rectal exam: Deferred - exam: Deferred - Extremities Extremities exam: Normal inspection. negative: Pedal edema, Tenderness - Back Back exam: Denies: CVA tenderness (R), CVA tenderness (L) - Neurological Neurological exam: Alert, Normal gait, Oriented X3 - Psychiatric Psychiatric exam: Anxious - Skin Skin exam: Normal color. negative: Abrasion Type of lesion: negative: abrasion Course Vital Signs 04/16/19 05:24 Temperature 97.3 F L Pulse Rate [ 67 Left] Respiratory 16 Rate Blood Pressure 132/73 [Left Arm] Pulse Ox 97 - Reevaluation(s) Reevaluation #1: 04/16/19 05:36 Vistaril given in ED, will reassess. Reevaluation #2: 04/16/19 06:42 Patient was reassessed, reports that Vistaril has not improved her symptoms and that she is feeling "scared about vomiting". Patient reports Ativan has worked for her previously (seen 11 days ago for the same). I planned on calling the patient's PCP to discuss treatment options, patient reports that she lamas not have a PCP. Patient has been instructed on numerous previous visits to establish with a PCP to manage her anxiety symptoms and nausea/vomiting, and that Ativan is a controlled substance that cannot be administered numerous times via ED visits. Patient was however given Haldol 5 mg IM with improvement in her symptoms. I again stressed the importance of establishing with a PCP for management of her ongoing medical issues. Disposition Disposition: Discharge Clinical Impression: Anxiety reaction Disposition: Home, Self-Care Condition: (2) Stable Instructions: Generalized Anxiety Disorder (ED) Additional Instructions: Return to ED if your symptoms worsen or if you have any concerns. Follow-up with your family doctor in 3-5 days without fail for evaluation of your anxiety symptoms. Forms: Patient Portal Access Time of Disposition: 06:46 Quality - Quality Measures Quality Measures: N/A - Blood Pressure Screening Does Patient Have Any of the Following: No Blood Pressure Classification: Pre-Hypertensive BP Reading Systolic Measurement: 132 Diastolic Measurement: 73 Screening for High Blood Pressure: < Pre-Hypertensive BP, F/U Documented > [[id number]] Pre-Hypertensive Follow-up Interventions: Referral to alternative/primary care provider.
[2019-04-16] MEDS ORDERED: HALOPERIDOL LACTATE 5 MG/ML VIAL IM ONE (06:22)
== END 2019-04-16 06:55 | disposition home or self-care (01) ==
LOC: ER 05:19
DX: F41.0 Panic disorder [episodic paroxysmal anxiety] (principal); R11.2 Nausea with vomiting, unspecified; F17.219 Nicotine dependence, cigarettes, with unspecified nicotine-induced disorders
CPT/HCPCS: 96372; 99284; J1630